=== PATIENT | male | born 1965 | race Caucasian/White ===

== ENCOUNTER 2022-08-18 08:20 | Outpatient (CLI) | payer BC, SELFPAY ==
--- NOTE | ~2022-08-18 | MR_ITS ---
EXAMINATION: MR wrist RT wo con DATE: 08/18/2022 09:12 INDICATION: Right wrist pain. TECHNIQUE: Magnetic resonance imaging (MRI) of the wrist was performed without intravenous contrast. Sequences performed include coronal T1-weighted FSE, coronal PD-weighted FS FSE, axial PD-weighted FS FSE, axial PD-weighted FSE, sagittal PD-weighted FSE, and sagittal PD-weighted FS FSE. COMPARISON: None FINDINGS: Intrinsic ligaments: There are tears of the proximal and volar components of scapholunate ligament. There is a partial tea r of the proximal component of lunotriquetral ligament. Triangular fibrocartilage complex (TFCC): There is a full-thickness tear of triangular fibrocartilage. Extensor wrist: There is a longitudinal split tear and mild tenosynovitis involving extensor carpi ulnaris. Flexor wrist: The flexor tendons are normal. Median nerve is normal. Guyon's canal: Ulnar nerve is normal. Bones/other: There is dorsal subluxation of ulna with respect to radius of the distal radioulnar joint. There is m oderate osteoarthritis of distal radioulnar joint. There is an old healed fracture deformity of dista l radius with incongruence of the distal articular surface. There is 11 degrees dorsal tilt of the di stal articular surface. There is moderate posttraumatic osteoarthritis of radioscaphoid joint. There is mild osteoarthritis of scaphoid-capitate joint and severe osteoarthritis of triscaphe joint and fi rst carpometacarpal joint. There is an old fracture of ulnar styloid with nonunion. IMPRESSION: 1. Polyarticular osteoarthritis. 2. Old fractures of distal radius and ulnar styloid. 3. Tears involving the scapholunate and lunotriquetral ligaments and triangular fibrocartilage. 4. Longitudinal split tear and mild tenosynovitis involving extensor carpi ulnaris. Reviewed, dictated and finalized at location A. [facility] CONSULTANT IMPRESSION: 1. Polyarticular osteoarthritis. 2. Old fractures of distal radius and ulnar styloid. 3. Tears involving the scapholunate and lunotriquetral ligaments and triangular fibrocartilage. 4. Longitudinal split tear and mild tenosynovitis involving extensor carpi ulna ris.
== END 2022-08-18 08:21 | disposition home or self-care (01) ==
PROVIDERS: PCP Family Medicine; Visit Provider Family Medicine
DX: M25.531 Pain in right wrist (principal); Z87.81 Personal history of (healed) traumatic fracture; M19.031 Primary osteoarthritis, right wrist; S63.591A Other specified sprain of right wrist, initial encounter; X58.XXXA Exposure to other specified factors, initial encounter
CPT/HCPCS: 73221

== ENCOUNTER 2023-12-03 01:42 | Day surgery (SDC) | payer BC, SELFPAY ==
[2023-11-26 15:30] VITALS: BMI 29.1
--- NOTE | 2023-11-26 15:33 | PC.NURSE ---
Report to the Outpatient Waiting Room, entrance under the green pavilion located off [facility], at time 0630 on date 12/03/23. Planned Procedure Time: 0830. Time changes happen often and if your time is changed the preop area will call you the afternoon before. - You and your visitor will be asked to self-screen and do not enter if you have any COVID symptoms. - A mask is optional within the hospital at this time. - No food OR DRINK from midnight until time of surgery Take the following medications with a SIP of water the morning of surgery: NONE DO NOT STOP ANY OF YOUR OTHER PRESCRIPTION MEDICATIONS PRIOR TO SURGERY ?EXCEPT THE FOLLOWING Medications to discontinue per physician: N/A Date to take last dose: N/A Please no make-up, nail georgian, hairspray, perfume, deodorant, or body powder the day of surgery. No jewelry (including any body piercings) or valuables the day of surgery, leave them at home. Please take a shower or bath the night before, or the morning of, surgery with an antibacterial soap. Wear comfortable, loose fitting clothing. - Jewelry must be removed prior to entering the operating room. Rings and piercings that are not removed may be cut off. - The hospital will not accept responsibility for valuables. - Please leave all valuables, including medications, at home the day of surgery. If you are going home after surgery, a licensed trolley coach driver must drive you home. - NO public transportation without another adult if you receive anesthesia. - We recommend that an adult stay with you for 24 hours following discharge. - We also recommend that you do not drive, make important decision, drink alcoholic beverages, or take any drugs that were not prescribed by your health care provider for at least 24 hours after your discharge time. Follow any additional instructions given to you from your surgeon. If you or anyone in your household have experienced Covid symptoms in the past week, please notify your surgeon or the nurse liaison at the phone number below for possible testing. Telephone instructions given to PT - YOBANI CHAVEZ and asked if any additional questions and then verbalized understanding. Patient advised to call surgeon office or pre surgery nurse liaison [phone] if any additional questions.
[2023-12-03 06:26] VITALS: BP 140/88; PULSE 61; RESP 18; TEMP 36.7; O2SAT 100; BMI 29.7
[2023-12-03] MEDS: LACTATED RINGERS 1,000 ML 30 ML IV CONT (07:10)
--- NOTE | 2023-12-03 08:01 | P.PNAN_ITS ---
Anes - Initial Pre Proc Eval Procedure: Operation Date: 12/03/23 08:30 Proposed Procedures p Right Endoscopic Carpal Tunnel Release, Possible Open - Praveen Quesada MD Date/Time: 12/03/23 08:01 Surgeon: Praveen Quesada MD Pre Op Diagnosis: right carpal tunnel syndrome Patient Data Age: 58 Gender: M Height: 1.83 m Weight: 99.4 kg Last Vital Signs Temp 98.0 F 12/03/23 06:26 Pulse 61 12/03/23 06:26 Resp 18 12/03/23 06:26 BP 140/88 12/03/23 06:26 Pulse Ox 100 12/03/23 06:26 O2 Del Method Room Air 12/03/23 06:26 Allergies Allergy/AdvReac Type Severity Reaction Status Date / Time No Known Allergies Allergy Verified 12/03/23 07:17 Home Medications Medication Instructions Recorded Confirmed Type lisinopril 20 mg tablet 20 mg PO DAILY #90 tabs 08/07/23 11/26/23 Rx tadalafil 20 mg tablet (Cialis) 20 mg PO DAILY PRN sexual activity 10/21/23 11/26/23 Rx #14 tabs Patient hx anesthesia problems: none Family hx anesthesia problems: none Results Review: All pre-operative results and documents have been reviewed as part of the pre- operative evaluation. [facility] Family History Family History Father Hypertension Heart problem Social History Social History Smoking status: Never smoker Alcohol intake: current Drinks per week: 10 Substance use: never Substance use type: does not use Lack of Transportation: No Lack of Food: Never True Current Housing: I Have Housing Concerned About Future Housing: No Difficulty Paying Gas/Electric Bills: No Difficulty Paying for Meds: No Currently Unemployed: No Education: High School Diploma/GED Difficulty w/ Childcare or Family Care: No Living arrangements: with family Gender identity (if verbalized by the patient): Male Sexual Orientation (if Verbalized by the Patient): Straight or Heterosexual Spiritual care concerns: No Anes - Eval Final PreProcedure Day of Procedure 12/03/23 08:01 Patient weight: obese Heart: regular rate and rhythm Lungs: clear to auscultation Airway: Mallampati scale class II Neurological: alert and oriented Last oral intake: >/= 8 hours ASA classification: II Emergent: no Anesthetic plan: proceed Anesthesia type and monitoring: general GIVS and standard monitoring Results Review: All pre-operative results and documents have been reviewed as part of the pre- operative evaluation. Informed Consent: The patient's anesthetic plan and its attendant risks and benefits were discussed with the patient/family/POA. Questions were solicited and answers provided to the satisfaction of the patient/family/POA.
--- NOTE | 2023-12-03 08:22 | WPDHPUPDATE1 ---
History and Physical Update Update Date/Time: 12/03/23 08:22 Patient seen and examined in pre-operative holding area. No interval change in medical history or symptoms. Patient recalls previous discussion of benefits and alternatives to procedure. Continues to desire to proceed with right endoscopic possible open carpal tunnel release. Reviewed procedure, post-op expectations and risks including but not limited to bleeding, infection, injury to tendon/nerve/vessel, decreased hand function, stiffness, RSD, no change or worsening of symptoms. I discussed the possible use of assistants and their participation in the case. Patient stated understanding and signed the consent form wishing to proceed.
--- NOTE | 2023-12-03 08:26 | P.OP_ITS ---
Procedure Note - Detailed Date of Procedure 12/03/23 Pre-op Diagnosis right carpal tunnel syndrome Post-op Diagnosis Same Procedure Performed right ectr Surgeon Praveen Quesada MD [employer]proof[employer]er Sarah Umana PA-C Anesthesia MAC Description of Procedure INFORMED CONSENT: The patient was seen and examined and marked in the pre-op area.? The patient signed the consent form. PROCEDURE IN DETAIL:The patient taken back to OR on the stretcher in supine position. Time out performed with anesthesia, surgeon and staff agreeing on patient's name site and surgery to be performed SCDs were placed on the lower extremities and inflated. A tourniquet was placed on {right} upper extremity and antibiotics given IV After anesthesia administered sedation I injected {5}cc 1%lido with epi and 0.5% marcaine plain at the operative site The?{right upper extremity}?was prepped and draped in sterile fashion the??{right upper extremity} was? exsanguinated with Esmarch bandage and tourniquet inflated to 250mmHg I made a transverse incision in the {right} volar distal wrist crease through skin and dermis with 15 blade scalpel.? Littler scissors spread down to antebrachial fascia. A small incision was made in antebrachial fascia allowing access to Carpal tunnel. I proceeded with sequential dilation staying in line with the ring finger and hugging the hook of the hamate.? I then used the synovial elevator to free any adhesions from the underside of the transverse carpal ligament. Next I was able to insert the Microaire endoscopic carpal tunnel device with direct visualization of the transverse fibers on the monitor and proceeded with complete segmental retrograde release of the ligament in its entirety.? I irrigated with normal saline and closed with 4-0 monocryl for dermis and subcuticular closure. A dressing of Dermabond, 4x4, marta, and a volar splint was applied for patient safety, security, and comfort and secured with an jerry bandage after the tourniquet was let down noting the hand was warm and well perfused. The patient was then awaken from anesthesia and transferred to the recovery room in stable condition.? Complications - none EBL- 0cc Disposition - home in stable conditions Sarah Umana PA-C was essential for positioining, retraction, closure and dressing placement [facility] Billing Surgery - Charge Forward: Surgery Billing ([id number] for sarah)
[2023-12-03 09:00] VITALS: BP 116/75; PULSE 65; RESP 14; O2SAT 98
[2023-12-03 09:20] VITALS: BP 124/79; PULSE 55; RESP 14; O2SAT 98
[2023-12-03 09:40] VITALS: BP 126/79; PULSE 53; RESP 14
== END 2023-12-03 09:50 | disposition home or self-care (01) ==
PROVIDERS: PCP Family Medicine; Visit Provider Plastic Surgery
PROC: 01N54ZZ Release Median Nerve, Percutaneous Endoscopic Approach (ICD-10-PCS; CPT 29848; principal; 2023-12-03 08:30)
DX: G56.01 Carpal tunnel syndrome, right upper limb (principal)
CPT/HCPCS: 29848; J0690; J1100; J2250; J2405; J2704; J3010; J7120

== ENCOUNTER 2024-04-13 16:02 | Emergency (ER) | payer BC, SELFPAY ==
[2024-04-13 16:12] VITALS: BP 128/84; PULSE 102; RESP 14; TEMP 38.1; O2SAT 97
--- NOTE | 2024-04-13 16:17 | ED.EXTPRO ---
HPI - Extremity Problem General Chief complaint: Extremity Injury, Lower Stated complaint: Swollen Left Knee Time Seen by Provider: 04/13/24 16:15 Source: patient Mode of arrival: ambulatory Limitations: no limitations History of Present Illness HPI Narrative: Joey is a 59-year-old male patient presenting to the clinic today with complaints of fever, chills, body aches, and left lower leg swelling. He reports about a week ago he developed swelling to the left knee and this is gradually gotten worse. Has redness and swelling from the left mid thigh all the way down to his foot. Patient states redness and swelling started around his left knee joint. Denies any injury. Related Data Allergies Allergy/AdvReac Type Severity Reaction Status Date / Time No Known Allergies Allergy Verified 04/13/24 16:12 Review of Systems Review of Systems: Pertinent positives per HPI. Patient denies any rash, headache, visual changes, dizziness, cough, runny nose, sore throat, shortness of breath, chest pain, palpitations, nausea, vomiting, diarrhea, constipation, abdominal pain, or any urinary issues. PMFSH Family History Family History Father Hypertension Heart problem Social History Social History Smoking status: Never smoker Alcohol intake: current Drinks per week: 10 Substance use: never Substance use type: does not use Lack of Transportation: No Lack of Food: Never True Current Housing: I Have Housing Concerned About Future Housing: No Difficulty Paying Gas/Electric Bills: No Difficulty Paying for Meds: No Currently Unemployed: No Education: High School Diploma/GED Difficulty w/ Childcare or Family Care: No Living arrangements: with family Gender identity (if verbalized by the patient): Male Sexual Orientation (if Verbalized by the Patient): Straight or Heterosexual Spiritual care concerns: No Comments At the time of my signature, I reviewed and agree with the nursing past medical, surgical, social, and family history. There is no relevant family history pertinent to the patient complaint. Exam Narrative: General: Well-developed, well nourished, acute ill appearing Head: Normocephalic, atraumatic. Cardio: Regular rate and rhythm, s1 and s2 normal, no murmur appreciated. Resp: Clear to auscultation bilaterally, no rhonchi, rales, wheezing or rubs. Musculoskeletal: No deformity, redness, erythema, and swelling noted from the left mid thigh down to the foot, 2+ pitting edema to the tib/fib, tender to palpation of the left lower extremity, grossly normal range of motion, muscle strength strong and equal, peripheral pulse strong, no cyanosis, normal gait and station Course Course Emergency Course: Portions of this record may have been created with voice recognition software. Level of Care: Express Care Visit Vital Signs Vital signs: Vital Signs Temperature 38.1 C H 04/13/24 16:12 Pulse Rate 102 H 04/13/24 16:12 Respiratory Rate 14 04/13/24 16:12 Blood Pressure 128/84 04/13/24 16:12 Pulse Oximetry 97 04/13/24 16:12 Oxygen Delivery Room Air 04/13/24 16:12 Temperature 38.1 C H 04/13/24 16:12 Pulse Rate 102 H 04/13/24 16:12 Respiratory Rate 14 04/13/24 16:12 Blood Pressure 128/84 04/13/24 16:12 Pulse Oximetry 97 04/13/24 16:12 Oxygen Delivery Room Air 04/13/24 16:12 Vital signs reviewed MDM - Extremity (Nontraumatic) MDM Narrative Medical decision making narrative: At the time of visit patient is resting in the exam chair,. Patient appears to be acutely ill. Plan: Recommend transfer to the ER for further evaluation/treatment-rule out sepsis/septic joint. Patient agrees to be transfer to [facility]. Contacted Dr. Schwartz at [facility] and she accepts patient for transfer. Patient to be transferred via private car.
== END 2024-04-13 16:22 | disposition short-term general hospital (02) ==
PROVIDERS: Emergency Provider Nurse Practitioner Family; PCP Family Medicine
DX: L03.116 Cellulitis of left lower limb (principal)
CPT/HCPCS: 99212; G0463

== ENCOUNTER 2024-04-13 16:42 | Inpatient (IN) | payer BC, SELFPAY ==
--- NOTE | ~2024-04-13 | XR_ITS ---
EXAMINATION: XR knee LT 3V DATE: 04/14/2024 10:06 INDICATION: Left knee prepatellar bursitis TECHNIQUE: AP, lateral and sunrise views of the left knee were obtained COMPARISON: None. FINDINGS: Alignment is normal. No fracture. Mild to moderate joint space narrowing the medial compartment of t he left knee. Moderate joint space narrowing at the lateral side of the patellofemoral compartment wi th moderate size marginal osteophytes. Small marginal osteophytes at the medial and lateral compartme nts. No knee joint effusion. Enthesophytes along the anterior and proximal patella. No cortical erosi ons. Soft tissue swelling anterior to the patellar tendon and more prominently anterior to the anterior ti bial tuberosity with increased density to the subcutaneous fat which would be consistent with prepate llar and pretibial bursitis as seen on prior CT. There is more diffuse reticular pattern of surroundi ng subcutaneous edema about the knee and proximal calf. IMPRESSION: 1. Prepatellar and pretibial bursitis. No left knee joint effusion or acute osseous abnormality. 2. Tricompartmental osteoarthritis, moderate at the patellofemoral compartment, mild to moderate at t he medial compartment and mild at the lateral compartment. Reviewed, dictated and finalized at location A. IMPRESSION: 1. Prepatellar and pretibial bursitis. No left knee joint effusion or acute oss eous abnormality. 2. Tricompartmental osteoarthritis, moderate at the patellofemoral compartment, mild to moderate at the medial compartment and mild at the lateral compartment .
--- NOTE | ~2024-04-13 | CT_ITS ---
CT OF left tibia/fibula EXAMINATION: CT tibia/fibula LT w con DATE: 04/13/2024 18:56 INDICATION: Rule out deep space infection TECHNIQUE: Computed tomography (CT) of the left tibia/fibula was performed with 100 mL Omnipaque 350 intravenous contrast. Automated exposure control and iterative reconstruction technique were employed . The dose-length product was 981.04 mGy-cm. COMPARISON: None FINDINGS: Lobulated rim-enhancing fluid collection in the anterior knee soft tissues, superficial to the tibial tuberosity, measuring 4.4 cm AP x 9.0 cm transverse x 7.8 cm CC. Mild overlying dermal thi ckening. Fairly extensive diffuse subcutaneous edema noted throughout the left lower leg. No knee marii nt space involvement. Small Muro's cyst. Tricompartmental knee joint osteoporosis arthritis, severe in the medial compartment. No fracture or dislocation. No lytic or blastic lesion. No erosion or fox osteal change. IMPRESSION: 9.0 cm subcutaneous abscess in the anterior knee. Diffuse lower extremity edema/cellulitis. Reviewed, dictated and finalized at location K. IMPRESSION: 9.0 cm subcutaneous abscess in the anterior knee. Diffuse lower extremity edema /cellulitis.
[2024-04-13 16:46] VITALS: BP 135/73; PULSE 104; RESP 20; TEMP 37.1; O2SAT 100
--- NOTE | 2024-04-13 17:13 | ED.GENADULT ---
HPI - General Adult General Chief complaint: Skin/Abscess/Foreign Body <KAITLYN Pryor Last Filed: 04/13/24 17:22> Stated complaint: L leg cellulitis <KAITLYN Pryor Last Filed: 04/13/24 17:22> Time Seen by Provider: 04/13/24 17:13 <Ankit Puentes PA-C - Last Filed: 04/13/24 17:22> Focused HPI: This is a 59-year-old male with PMH of hypertension who presents to the ED for chief complaint of left lott redness, swelling and tenderness onset x1 week. Reports it has been gradually worsening over the past week. Today it was bad enough for him to go to urgent care. Urgent care referred him over here rule out a septic joint. Patient states that he is able to ambulate without difficulty. He reports that there is a lot of swelling to the left lower leg. Denies numbness, weakness, calf pain or tenderness. Denies history of blood clot. Denies any immunocompromised condition GENERAL: Well-appearing, well-nourished, and in no acute distress. HEAD: Normocephalic, atraumatic. CHEST: Clear to auscultation. No respiratory distress. HEART: Regular rate and rhythm. MSK: Ambulatory without assistance Right knee: Benign Left knee: There is erythema and swelling throughout the left anterior lott and left inferior knee. There is redness streaking the proximal. Parenting anterior lott is quite warm and tender. Questionable fluctuance central to the erythema. No drainage. Full active range of motion of the left knee. Able to bear weight NEURO: Alert and oriented x3. Patient screened in triage and initial orders placed. Additional care and disposition to be based upon diagnostic testing and treatment. <KAITLYN Pryor Last Filed: 04/13/24 17:22> Source: patient <KAITLYN Pryor Last Filed: 04/13/24 17:22> Mode of arrival: ambulatory <KAITLYN Pryor Last Filed: 04/13/24 17:22> Limitations: no limitations <KAITLYN Pryor Last Filed: 04/13/24 17:22> Related Data Allergies/adverse reactions: Allergies Allergy/AdvReac Type Severity Reaction Status Date / Time No Known Allergies Allergy Verified 04/13/24 17:27 <Ankit Puentes PA-C - Last Filed: 04/13/24 17:22> [facility] Family History Family History: Family History Father Hypertension Heart problem <Ankit Puentes PA-C - Last Filed: 04/13/24 17:22> Social History Social History: Social History Smoking status: Never smoker Alcohol intake: current Drinks per week: 10 Substance use: never Substance use type: does not use Lack of Transportation: No Lack of Food: Never True Current Housing: I Have Housing Concerned About Future Housing: No Difficulty Paying Gas/Electric Bills: No Difficulty Paying for Meds: No Currently Unemployed: No Education: High School Diploma/GED Difficulty w/ Childcare or Family Care: No Living arrangements: with family Gender identity (if verbalized by the patient): Male Sexual Orientation (if Verbalized by the Patient): Straight or Heterosexual Spiritual care concerns: No <Ankit Puentes PA-C - Last Filed: 04/13/24 17:22> Exam Narrative: APPEARANCE: No apparent distress. Head: atraumatic. EYES: EOMI, NOSE: Atraumatic NECK: Trachea midline RESPIRATORY: No increased rate of breathing CARDIOVASCULAR: RRR, ABDOMINAL: Non-distended MUSCULOSKELETAl: Large fluctuant mass over the infrapatellar ligament, leg is neurovascularly intact. No pain with motion of the knee. NEURO: Alert. Moving 4/4 extremities SKIN:: Warm, dry. Normal color PSYCHIATRIC: Normal affect <Rahul Vicente MD - Last Filed: 04/13/24 20:36> Course Vital Signs Vital signs: Vital Signs Temperature 98.8 F 04/13/24 16:46 Pulse Rate 104 H 04/13/24 16:46 Respiratory Rate 20 04/13/24 16:46 Blood Pressure 135/73 0
[2024-04-13 17:35] VITALS: BP 140/78; PULSE 99; RESP 28; O2SAT 97
[2024-04-13] MEDS: SODIUM CHLORIDE 0.9% IV 1,000 ML 999 ML IV CONT (17:44)
[2024-04-13 17:46] LABS: Basophils Absolute Auto 0.1 K/mm3 (0.0-0.1); Basophils Percent Auto 0.5 % (0.2-1.2); Eosinophils Absolute Auto 0.1 K/mm3 (0-0.3); Eosinophils Percent Auto 0.5 % (0-4.4); Hematocrit 37.7 % (42.0-52.0); Hemoglobin 12.8 g/dL (14.0-18.0); Immature Granulocyte Absolute 0.02 K/mm3 (0.00-0.031); Immature Granulocyte Percent A 0.2 % (0-0.5); Lymphocytes Percent Auto 10.8 % (18.3-44.2); Mean Corpuscular Hemoglobin 29.6 pg (26-34); Mean Corpuscular Volume 87.3 fl (80-100); Mean Platelet Volume 9.6 fl (7.4-10.4); Monocytes Absolute Auto 0.7 K/mm3 (0.1-0.6); Neutrophils Absolute Auto 7.4 K/mm3 (1.3-6.7); Platelet Count Result 332 k/mm3 (150-375); Red Blood Count 4.32 M/mm3 (4.6-6.20); Red Cell Distribution Width 12.8 % (11.5-14.5); White Blood Count 9.2 K/mm3 (4.5-10.0)
[2024-04-13 17:59] LABS: Lactic Acid Reflex 0.8 mmol/L (0.7-2.0)
[2024-04-13 18:02] LABS: Alanine Aminotransferase 52 U/L (6-50); Albumin Level 4.5 g/dL (3.5-5.1); Alkaline Phosphatase 105 U/L (38-126); Anion Gap 12 mmol/L (4-12); Aspartate Amino Transferase 44 U/L (17-59); Bilirubin,Total 0.7 mg/dL (0.2-1.3); Blood Urea Nitrogen 13 mg/dL (9-20); Carbon Dioxide 26 mmol/L (22-30); Chloride 92 mmol/L (98-107); Estimated CRCL calculation 71 ml/min; Estimated Glomerular Filt Rate > 60; Glucose 115 mg/dL (65-110); Potassium 4.1 mmol/L (3.4-5.0); Sodium 130 mmol/L (137-145)
[2024-04-13 18:14] LABS: CRP 17.2 mg/dL (<1.0)
[2024-04-13] MEDS: PIPERACILLN/TAZ 3.375GM/NS50ML 3.375 GM/50 ML BAG IVPB (20:40)
[2024-04-13 20:50] VITALS: BP 148/85; PULSE 94; RESP 16; O2SAT 99
[2024-04-13] MEDS: ONDANSETRON INJ 4 MG/2 ML VIAL IV PUSH (20:50)
[2024-04-13 22:00] VITALS: BP 131/71; PULSE 91; RESP 18; TEMP 37; O2SAT 97
[2024-04-13 22:06] VITALS: BMI 30.2
--- NOTE | 2024-04-13 22:13 | ADMGEN ---
This patient, Joey Edwards Jr., was admitted to [facility] Surg Room 328-01. Patient/family oriented to hospital policies and general routines including ID bracelet, bed and alarms, visiting hours, pain management, procedures, bathroom and other care routines, personal items, smoking policy, room service/diet, and visiting hours. Information on how to activate the Rapid Response Team has been discussed. Patient/Family are encouraged to report perceived risks to care and to ask questions if they do not understand what they are told or what they should do.
[2024-04-13] MEDS: LACTATED RINGERS 1,000 ML 150 ML IV CONT (22:24)
[2024-04-13] MEDS: VANCOMYCIN 1,250 MG/NS 250 ML 1,250 MG/250 ML BAG 166.67 MG IVPB (22:24)
--- NOTE | 2024-04-13 23:17 | PM.IMHP ---
H&P: HPI History of Present Illness Date/Time: 04/13/24 23:18 Chief Complaint: Left knee swelling and redness Narrative: 59-year-old male with a past medical history of essential hypertension daughters function who presented to the ER after referral from urgent care due to left knee swelling and erythema that is getting worse over the last 2 weeks. 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 He noticed that about 2 weeks ago he developed an area of erythema that was initially about the size of a quarter on his anterior knee. Initially there was no associated tenderness but he did develop tenderness this past week and has had progressive swelling. The swelling was initially localized around the anterior knee but now his calf and foot have become swollen as well. On and off throughout the last week he has had intermittent rigors and subjective fevers. He did not check his temperature. His temperature on arrival to the ER was 100.5?. He reported that he thought that it would eventually get better and he did not want to miss work so he just waited. Today he felt bad enough that he went to urgent care and they referred him to come here to rule out a septic joint. The patient reports that he can ambulate without difficulty but does have a little bit of discomfort. The discomfort is worse when he bends his knee or puts direct pressure on the area. Pain is 5/10 in intensity and aching. He has tried some ibuprofen at home without relief in symptoms. A CT scan with contrast were performed in the ED which demonstrated a 4.4 x 9 x 7.8 cm abscess without joint involvement but with overlying dermal thickening and edema consistent with cellulitis. In on exam patient is noted to have edema down the anterior leg and into the foot. He reports that part of why he came in today was because he had difficulty getting his boot on to go to work. He denies a prior history of prior skin infections. He denies any other symptoms. He reports that he had told himself the last time he had an illness that he would go to the doctor sooner. He is now impair states that he did not come in and get this taking care of. Review of Systems Review of Systems: 10 systems were reviewed with pertinent positives and negatives per HPI. Except as documented in the HPI, all other systems were reviewed and are negative. 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 He does not have any children. 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 He drinks about 10-15 beers each weekend. He denies any tobacco or illicit substance use. Code status: Full code Surrogate decision maker: Cathy () Smoking status: Never smoker Second hand tobacco smoke exposure: No Alcohol intake: current Drinks per week: 15 Substance use: never Substance use type: does not use Do You Feel Safe in your Home?: Yes Lack of Transportation: No Lack of Food: Never True Current Housing: I Have Housing Concerned About Future Housing: No Difficulty Paying Gas/Electric Bills: No Difficulty Paying for Meds: No Currently Unemployed: No Education: High School Diploma/GED Difficulty w/ Childcare or Family Care: No Living arrangements: with family Gender identity (if v
[2024-04-14] VITALS (13 sets, daily range): BP systolic 113–133; BP diastolic 63–78; PULSE 64–96; RESP 12–19; TEMP 36.4–39.6; O2SAT 97–100
[2024-04-14] MEDS: VANCOMYCIN 1,250 MG/NS 250 ML 1,250 MG/250 ML BAG 166.67 MG IVPB (01:55)
[2024-04-14] MEDS: PIPERACILLN/TAZ 3.375GM/NS50ML 3.375 GM/50 ML BAG IVPB ×2 (03:36→09:36)
[2024-04-14] MEDS: IBUPROFEN 600 MG TABLET PO (05:33)
[2024-04-14] MEDS: ACETAMINOPHEN 325 MG TABLET 650 MG PO ×2 (05:33→21:02)
[2024-04-14 06:34] LABS: Basophils Percent Auto 0.5 % (0.2-1.2); Eosinophils Absolute Auto 0.1 K/mm3 (0-0.3); Eosinophils Percent Auto 0.6 % (0-4.4); Hematocrit 31.8 % (42.0-52.0); Hemoglobin 10.5 g/dL (14.0-18.0); Immature Granulocyte Absolute 0.07 K/mm3 (0.00-0.031); Immature Granulocyte Percent A 0.8 % (0-0.5); Lymphocytes Absolute Auto 0.88 K/mm3 (0.9-3.2); Lymphocytes Percent Auto 10.2 % (18.3-44.2); Mean Corpuscular Hemoglobin 29.2 pg (26-34); Mean Corpuscular Volume 88.3 fl (80-100); Mean Platelet Volume 9.3 fl (7.4-10.4); Monocytes Absolute Auto 0.7 K/mm3 (0.1-0.6); Monocytes Percent Auto 7.9 % (2.6-8.5); Neutrophils Absolute Auto 6.9 K/mm3 (1.3-6.7); Platelet Count Result 276 k/mm3 (150-375); Red Cell Distribution Width 13.1 % (11.5-14.5); White Blood Count 8.6 K/mm3 (4.5-10.0)
[2024-04-14 06:41] LABS: Anion Gap 9 mmol/L (4-12); Blood Urea Nitrogen 11 mg/dL (9-20); Calcium 8.3 mg/dL (8.4-10.2); Carbon Dioxide 24 mmol/L (22-30); Chloride 101 mmol/L (98-107); Estimated CRCL calculation 87 ml/min; Estimated Glomerular Filt Rate > 60; Glucose 117 mg/dL (65-110); Potassium 3.9 mmol/L (3.4-5.0); Sodium 134 mmol/L (137-145)
--- NOTE | 2024-04-14 08:59 | PM.IMPN ---
Progress Note: A&P Assessment and Plan (1) Cutaneous abscess of left knee: Code(s): L02.416 - Cutaneous abscess of left lower limb Status: Acute (2) Hypertension: Qualifiers: Hypertension type: primary hypertension Qualified Code(s): I10 - Essential (primary) hypertension Code(s): I10 - Essential (primary) hypertension Status: Acute (3) Sepsis without septic shock: Code(s): A41.9 - Sepsis, unspecified organism Status: Acute Plan Sepsis fever 103, tachycardia and infection of the LT knee 1L NS in ED Zosyn and vanc Monitor lactic acid levels q6hr. 0.8 POA Repeat CBC, CMP. Two sets of blood cultures pending C-reactive proteins elevated Abscess of left knee Septic Joint?? Ct 9.0 cm subcutaneous abscess in the anterior knee. Diffuse lower extremity edema/cellulitis. Ortho consulted for possible aspiration Vanc/zosyn Pain control blood cultures pending Lactic WNL culture fluid Antipyretics for fever HX HTN: Resumed lisinopril Code status: Full code per patient DVT prophylaxis: Lovenox Stress ulcer prophylaxis: Protonix 40 daily PT/OT notes: Ambulatory Disposition: Patient admitted to the medical unit for further evaluation of abscess/septic joint of the left knee, ortho consulted will continue with empiric antibiotics plan for aspiration later today. Patient plan is to return home when medically stable. Time Spent With Patient Time with patient: 15 - 25 minutes Subjective Date/time seen: 04/14/24 08:59 Interval history: Admission: 59-year-old male with a past medical history of essential hypertension daughters function who presented to the ER after referral from urgent care due to left knee swelling and erythema that is getting worse over the last 2 weeks. The patient reports that he works for the [employer] and does end of kneeling on his knees frequently. He noticed that about 2 weeks ago he developed an area of erythema that was initially about the size of a quarter on his anterior knee. Initially there was no associated tenderness but he did develop tenderness this past week and has had progressive swelling. The swelling was initially localized around the anterior knee but now his calf and foot have become swollen as well. On and off throughout the last week he has had intermittent rigors and subjective fevers. He did not check his temperature. His temperature on arrival to the ER was 100.5?. He reported that he thought that it would eventually get better and he did not want to miss work so he just waited. Today he felt bad enough that he went to urgent care and they referred him to come here to rule out a septic joint. The patient reports that he can ambulate without difficulty but does have a little bit of discomfort. The discomfort is worse when he bends his knee or puts direct pressure on the area. Pain is 5/10 in intensity and aching. He has tried some ibuprofen at home without relief in symptoms. A CT scan with contrast were performed in the ED which demonstrated a 4.4 x 9 x 7.8 cm abscess without joint involvement but with overlying dermal thickening and edema consistent with cellulitis. In on exam patient is noted to have edema down the anterior leg and into the foot. He reports that part of why he came in today was because he had difficulty getting his boot on to go to work. He denies a prior history of prior skin infections. He denies any other symptoms. 04/14/2024: Assumed Care Patient LT with significant swelling, erythema and pain 9/10 unable to bear weight, plan is for aspiration today send for culture. Patient was febrile overnight and tachycardic but has improved with ABX therapy. Patient denied any trauma or known injury to knee. Review of Systems Review of Systems: 10 systems were reviewed with pertinent positives and negatives per HPI. Except as documented in the HPI, all other systems wer
--- NOTE | 2024-04-14 09:31 | PM.CNOR ---
Assessment and Plan Assessment and plan (1) Prepatellar bursitis, left knee: Code(s): M70.42 - Prepatellar bursitis, left knee <PARAG Green - Last Filed: 04/14/24 11:52> Status: Acute <PARAG Green - Last Filed: 04/14/24 11:52> Assessment and Plan: History, exam and CT scan reviewed with the patient. Plain films ordered. Plain films reveal prepatellar and pretibial bursitis without left knee joint effusion or acute osseous abnormality. Patient does have tricompartmental osteoarthritis noted as well on radiographs. On exam, large area of erythema anterior to the tibial tubercle which is fluctuant in nature with mild purulence from a small abrasion. No palpable knee joint effusion. Patient is able to bear weight without extreme pain. Erythema and swelling throughout the entire left lower extremity consistent with cellulitis. 2+ pitting edema in the left foot. Palpable pedal pulses. Sensation intact. Discussed condition, nature, etiology and course of natural history. Conservative and operative treatment options reviewed as well as the risks and benefits of each. Blood cultures obtained up to this point but no wound cultures available. Recommended I&D of the prepatella and pretibial bursa by Dr. Cole. Risks of surgery including but not limited to neurovascular damage, wound complications, blood clot, pulmonary embolus, stroke, myocardial infarction, anesthetic risks up to and including were reviewed. Continued pain and possible dysfunction were explained. No guarantees were offered. The patient understands and wishes to proceed. Plan: I&D of the prepatella and pretibial bursa by Dr. Cole. NPO. Cultures to be obtained intraoperatively. Continue IV antibiotics in the interim. Possible need for PICC line placement and ID consult pending surgical intervention. Monitor labs and vitals. Repeat CRP and CBC following surgical intervention. We will obtain care coordination consult for postoperative planning purposes. <PARAG Green - Last Filed: 04/14/24 11:52> Assessment and Plan: Reviewed history, exam, radiographs and current labs with attending MD and covering surgeon, Dr. Cole, who agrees with current plan as indicated above. No further recommendations from Dr. Cole at this time. <PARAG Green - Last Filed: 04/14/24 11:52> History of Present Illness HPI Consult date: 04/14/24 <PARAG Green - Last Filed: 04/14/24 11:52> 04/14/24 <Reji Cole MD - Last Filed: 04/14/24 12:42> Chief complaint: Abscess <PARAG Green - Last Filed: 04/14/24 11:52> Narrative: 59-year-old male admitted with complaints of left knee pain and swelling. Per patient report, the onset of the pain and swelling was 1 week ago with gradual increasing erythema. He presented to the emergency room with complaints of left knee pain and underwent a CT scan which revealed a 9.0 cm subcutaneous abscess in the anterior knee. Diffuse lower extremity edema and cellulitis is noted as well. Patient was admitted for broad-spectrum antibiotics and orthopedic consult. 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
[2024-04-14] MEDS: lisinopriL 20 MG TABLET PO (09:34)
[2024-04-14] MEDS: PANTOPRAZOLE 40 MG TABLET PO (09:34)
--- NOTE | 2024-04-14 10:24 | ECG_ITS ---
Test Date: 2024-04-14 11:03:00 Measurements Intervals Maria Stein Rate: 61 P: 4 OH: 147 QRS: 7 QRSD: 102 T: 19 QT: 408 QTc: 414 Interpretive Statements SINUS RHYTHM EARLY PRECORDIAL R/S TRANSITION BORDERLINE ECG No previous ECG available for comparison Electronically Signed On 04-14-2024 11:06:41 CDT by Олег Locke D.O.
[2024-04-14] MEDS: VANCOMYCIN 1,500 MG/NS 500 ML 1,500 MG/500 ML BAG 250 MG IVPB ×2 (10:35→21:03)
--- NOTE | 2024-04-14 11:23 | PC.NURSE ---
To OR per [BRODIE], IV [ ]. Report given to [BRODIE ].
[2024-04-14] MEDS: LACTATED RINGERS 1,000 ML 30 ML IV CONT (11:40)
--- NOTE | 2024-04-14 12:41 | WPDHPUPDATE1 ---
History and Physical Update Update Date/Time: 04/14/24 12:41 History and Physical has been reviewed, including an updated exam of the patient. There are NO changes in the patient's condition. Risks, benefits, and alternatives have been discussed and questions answered. Patient agrees to proceed with procedure.
--- NOTE | 2024-04-14 12:45 | PHA.ABX.ID ---
Pharmacy ID Consult - Stewardship Interventions Type of Interventions: De-escalation Pharmacy ID Note: Subjective Pharmacy was consulted by Steve Garay regarding infectious diseases for Joey Edwards Jr.. Joey Edwards Jr. is a 59 year old M with concerns regarding potential septic bursitis. Background The patient is currently receiving Vancomycin and Piperacillin/Tazobactam (Full Day 1). The patient's PMH includes prepatellar bursitis per scans and provider note - other PMH per provider note. Additionally, the patient was febrile soon after presentation since this AM but is afebrile now. Assessment/Recommendation/Discussion Spoke briefly with consulting provider, as the patient is currently not immunosuppressed per discussion the patient's beta-lactam was transitioned from Zosyn to ceftriaxone 2g q24h - current therapy (Vancomycin/Ceftriaxone). Given this is likely septic bursitis per provider coverage for Streptococcus and Staphylococcus aureus (MRSA especially) is warranted given patient's fever. Patient is to undergo source control and culture later today per provider. After source control and confirmation of pathogen, patient can likely be transitioned to oral therapy in the absence of fever / sepsis or local infective joint with prosthetic material and if the patient is showing improvement. Empiric Oral options include a combination of doxycycline or Sulfamethoxazole/Trimethoprim and amoxicillin (combination of a beta-lactam and an anti-MRSA agent) or a combination of IV ceftriaxone and PO sulfamethoxazole/trimethoprim or doxycycline. Duration of treatment, assuming improvement, can likely be between 14-21 days from the drainage/final source control. Will continue to follow for culture results and more targeted therapy options. Laboratory Tests 04/13/24 04/13/24 04/14/24 17:40 17:40 06:16 WBC 9.2 8.6 Creatinine 1.10 Estim Creat Clear Calc 71 87 Lactic Acid 0.8 C-Reactive Protein 17.2 H 04/14/24 06:16 WBC Creatinine 1.00 Estim Creat Clear Calc Lactic Acid C-Reactive Protein Thank you for the interesting consult. Demarcus Griffiths, PharmD Infectious Disease/Antimicrobial Stewardship Pharmacist 04/14/24; 1245 WBC 8.6 K/mm3 (4.5-10.0) 04/14/24 06:16 Creatinine 1.00 mg/dL (0.7-1.3) 04/14/24 06:16 Estim Creat Clear Calc 87 ml/min 04/14/24 06:16
--- NOTE | 2024-04-14 12:51 | WPDANESEPPF ---
Anes - Initial Pre Proc Eval Procedure: Operation Date: 04/14/24 13:00 Proposed Procedures p Irrigation & Debridement Left Pre-Patella Bursa(Left) - Reji Cole MD Date/Time: 04/14/24 12:51 Surgeon: Enid Ballard APRN Pre Op Diagnosis: Abscess Patient Data Age: 59 Gender: M Height: 1.83 m Weight: 101 kg Last Vital Signs Temp 36.6 C 04/14/24 11:39 Pulse 64 04/14/24 11:39 Resp 18 04/14/24 11:39 BP 113/63 04/14/24 11:39 Pulse Ox 100 04/14/24 11:39 O2 Del Method Room Air 04/14/24 11:39 Allergies Allergy/AdvReac Type Severity Reaction Status Date / Time No Known Allergies Allergy Verified 04/14/24 11:47 Home Medications Medication Instructions Recorded Confirmed Type lisinopril 20 mg tablet 20 mg PO DAILY #90 tabs 03/20/24 04/14/24 Rx Laboratory Tests 04/13/24 04/14/24 17:40 06:16 WBC 9.2 K/mm3 8.6 K/mm3 (4.5-10.0) (4.5-10.0) RBC 4.32 L M/mm3 3.60 L M/mm3 (4.6-6.20) (4.6-6.20) Hgb 12.8 L g/dL 10.5 L g/dL (14.0-18.0) (14.0-18.0) Hct 37.7 L % 31.8 L % (42.0-52.0) (42.0-52.0) MCV 87.3 fl 88.3 fl (80-100) (80-100) MCH 29.6 pg 29.2 pg (26-34) (26-34) MCHC 34.0 g/dl 33.0 g/dl (32-36) (32-36) RDW 12.8 % 13.1 % (11.5-14.5) (11.5-14.5) Plt Count 332 k/mm3 276 k/mm3 (150-375) (150-375) MPV 9.6 fl 9.3 fl (7.4-10.4) (7.4-10.4) Immature Gran % (Auto) 0.2 % 0.8 H % (0-0.5) (0-0.5) Neut % (Auto) 80.0 H % 80.0 H % (45.5-73.1) (45.5-73.1) Lymph % (Auto) 10.8 L % 10.2 L % (18.3-44.2) (18.3-44.2) [place] % (Auto) 8.0 % 7.9 % (2.6-8.5) (2.6-8.5) Eos % (Auto) 0.5 % 0.6 % (0-4.4) (0-4.4) Baso % (Auto) 0.5 % 0.5 % (0.2-1.2) (0.2-1.2) Lymph # (Auto) 1.00 K/mm3 0.88 L K/mm3 (0.9-3.2) (0.9-3.2) [place] # (Auto) 0.7 H K/mm3 0.7 H K/mm3 (0.1-0.6) (0.1-0.6) Eos # (Auto) 0.1 K/mm3 0.1 K/mm3 (0-0.3) (0-0.3) Baso # (Auto) 0.1 K/mm3 0.0 K/mm3 (0.0-0.1) (0.0-0.1) Abs Immat Gran (auto) 0.02 K/mm3 0.07 H K/mm3 (0.00-0.031) (0.00-0.031) Absolute Neuts (auto) 7.4 H K/mm3 6.9 H K/mm3 (1.3-6.7) (1.3-6.7) Absolute Nucleated RBC 0.000 K/mm3 0.000 K/mm3 (0.0-0.012) (0.0-0.012) Nucleated RBC % 0.0 % 0.0 % (0.0-0.2) (0.0-0.2) Sodium 130 L mmol/L 134 L mmol/L (137-145) (137-145) Potassium 4.1 mmol/L 3.9 mmol/L (3.4-5.0) (3.4-5.0) Chloride 92 L mmol/L 101 mmol/L (98-107) (98-107) Carbon Dioxide 26 mmol/L 24 mmol/L (22-30) (22-30) Anion Gap 12 mmol/L 9 mmol/L (4-12) (4-12) BUN 13 mg/dL 11 mg/dL (9-20) (9-20) Creatinine 1.10 mg/dL 1.00 mg/dL (0.7-1.3) (0.7-1.3) Estim Creat Clear Calc 71 ml/min 87 ml/min Estimated GFR > 60 > 60 (59 - ) (59 - ) Glucose 115 H mg/dL 117 H mg/dL (65-110) (65-110) Lactic Acid 0.8 mmol/L (0.7-2.0) Calcium 9.0 mg/dL 8.3 L mg/dL (8.4-10.2) (8.4-10.2) Total Bilirubin 0.7 mg/dL (0.2-1.3) AST 44 U/L (17-59) ALT 52 H U/L (6-50) Alkaline Phosphatase 105 U/L (38-126) C-Reactive Protein 17.2 H mg/dL (<1.0) Total Protein 8.0 g/dL (6.3-8.2) Albumin 4.5 g/dL (3.5-5.1) Patient hx anesthesia problems: none Family hx anesthesia problems: none Results Review: All pre-operative results and documents have been reviewed as part of the pre-operative evaluation. 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
--- NOTE | 2024-04-14 13:37 | W.PM.PROC2 ---
Procedure Note - Detailed Date of Procedure 04/14/24 Pre-op Diagnosis Abscess Post-op Diagnosis Same Procedure Performed LEFT KNEE INCISION AND DRAINAGE WITH IRRIGATION AND DEBRIDEMENT OF PRE PATELLA ABSCESS DOWN TO TENDON AND BONE Surgeon Reji Cole MD Anesthesia General Findings GROSS PURULENCE Description of Procedure PATIENT WAS TAKEN TO THE OPERATING ROOM AND THE LEFT LEG WAS PREPPED AND DRAPED IN THE USUAL STERILE FASHION. THE PRE PATELLA ABSCESS WAS IDENTIFIED AND THE SKIN WAS INCISED DOWN THROUGH THE SUBCUTANEOUS TISSUES UNTIL THE PRE PATELLA SPACE WAS ENTERED. COPIOUS AMOUNTS OF PURULENCE WAS DRAINED FROM THE SPACE AND CULTURES WERE TAKEN. DISSECTION CONTINUED UNTIL THE SPACE WAS WIDELY INSPECTED. THE BURSAE WAS REMOVED WITH DEEP DISSECTION FROM THE TIBIAL TUBERCLE TO THE DISTAL POLE OF THE PATELLA USING A SHARP KNIFE AND RONGEUR. THERE WAS FAT NECROSIS EXTENSIVELY WITH A SHARP KNIFE AND RONGEUR WHICH WAS EXCISED. THERE WAS GOOD BLEEDING TISSUE. THE PATELLA TENDON WAS NOT VIOLATED. THE WOUND THEN WAS IRRIGATED WITH 4 LITERS OF FLUID AND STERILE BETADINE. A DRAIN WAS PLACE IN THE PRE PATELLA SPACE. THE SKIN WAS REPAIRED WITH 3- PROLINE IN A LOOSE FASHION. STERILE DRESSING WAS APPLIED. THE PATIENT WAS EXTUBATED AND SENT TO THE RECOVERY ROOM. Estimated Blood Loss 50 Drains Yes Pathology Other (MICRO SPECIMEN) Complications No immediate complications Condition Stable Disposition PACU
--- NOTE | 2024-04-14 15:19 | PC.NURSE ---
Returned from OR per [ ]. Report received from [Adelaide].
[2024-04-14] MEDS: cefTRIAXone 2 GM/NS 100 ML 2 GM/100 ML BAG IVPB (15:52)
[2024-04-14] MEDS: LACTATED RINGERS 1,000 ML 150 ML IV CONT (17:12)
[2024-04-15] VITALS (7 sets, daily range): BP systolic 125–127; BP diastolic 66–68; PULSE 83–97; RESP 15–16; TEMP 36.8–38.5; O2SAT 95–98
[2024-04-15] MEDS: ACETAMINOPHEN 325 MG TABLET 650 MG PO (05:38)
[2024-04-15 06:49] LABS: Hematocrit 28.7 % (42.0-52.0); Hemoglobin 9.5 g/dL (14.0-18.0); Mean Corpuscular HGB Conc 33.1 g/dl (32-36); Mean Corpuscular Hemoglobin 29.8 pg (26-34); Mean Platelet Volume 9.6 fl (7.4-10.4); Platelet Count Result 257 k/mm3 (150-375); Red Blood Count 3.19 M/mm3 (4.6-6.20); Red Cell Distribution Width 13.2 % (11.5-14.5); White Blood Count 7.2 K/mm3 (4.5-10.0)
[2024-04-15 07:17] LABS: Alanine Aminotransferase 44 U/L (6-50); Albumin Level 3.1 g/dL (3.5-5.1); Alkaline Phosphatase 93 U/L (38-126); Anion Gap 8 mmol/L (4-12); Aspartate Amino Transferase 43 U/L (17-59); Bilirubin,Total 0.5 mg/dL (0.2-1.3); Blood Urea Nitrogen 8 mg/dL (9-20); Calcium 7.7 mg/dL (8.4-10.2); Carbon Dioxide 25 mmol/L (22-30); Chloride 98 mmol/L (98-107); Estimated CRCL calculation 108 ml/min; Estimated Glomerular Filt Rate > 60; Glucose 111 mg/dL (65-110); Potassium 3.9 mmol/L (3.4-5.0); Sodium 131 mmol/L (137-145)
[2024-04-15] MEDS: lisinopriL 20 MG TABLET PO (08:08)
[2024-04-15] MEDS: PANTOPRAZOLE 40 MG TABLET PO (08:08)
[2024-04-15 08:15] LABS: CRP 19.8 mg/dL (<1.0)
[2024-04-15] MEDS: cefTRIAXone 2 GM/NS 100 ML 2 GM/100 ML BAG IVPB (10:00)
[2024-04-15] MEDS: VANCOMYCIN 2,000 MG/NS 500 ML 2,000 MG/500 ML BAG 250 MG IVPB ×2 (10:41→18:14)
--- NOTE | 2024-04-15 10:47 | PM.PNORT ---
Progress Note: A&P Assessment and Plan (1) Cutaneous abscess of left knee: Code(s): L02.416 - Cutaneous abscess of left lower limb Status: Acute Assessment and Plan: POD 1 IMPROVING DESPITE FEVER SPIKE. HIS WBC COUNT HAS DECREASED WELL. RECOMMEND CONTINUE IV ABX UNTIL WE HAVE A FINAL ON THE INTRA OPERATIVE CULTURES FOR ORGANISM AND SENSITIVITY. AGREE WITH ID PROTOCOL PER ANJALI REN PharmD DEPENDING ON ORGANISM SENSITIVITY. WILL PULL DRAIN TODAY. PATIENT WILL F/U IN 2 WEEKS FOE ORTHO AT TIME OF DISCHARGE. (2) Prepatellar bursitis, left knee: Code(s): M70.42 - Prepatellar bursitis, left knee Status: Acute Subjective Subjective Date/Time Seen: 04/15/24 10:47 Interval history: POD 1 DOING WELL. FEVER SPIKE TO 101.3. MINIMAL PAIN IN THE KNEE. MOVING KNEE WITH WELL WITH AROM AND WITH PAIN Exam Extrem: Other: VSS AFEBRILE NOW, NV INTACT DRESSING DRY DRAIN IN PLACE WITH SCANT DRAINAGE, CELLULITIS DECREASED, CALF SOFT NON TENDER, NEG HOMANS SIGN, AROM/PROM OF KNEE WITH MINIMAL PAIN, WOUND CLEAN WITH NO ACTIVE DRAINAGE Objective Data Vital Signs Vital Signs: Vital Signs - 24 hr 04/14/24 11:39 04/14/24 14:33 04/14/24 14:45 Temperature 36.6 C 36.4 C L Pulse Rate 64 88 76 Respiratory Rate 18 14 13 Blood Pressure 113/63 132/75 133/78 Pulse Oximetry 100 99 97 Oxygen Delivery Room Air Room Air Room Air 04/14/24 15:00 04/14/24 15:15 04/14/24 15:30 Temperature Pulse Rate 79 75 75 Respiratory Rate 19 12 15 Blood Pressure 126/76 130/74 130/73 Pulse Oximetry 100 100 100 Oxygen Delivery Room Air Room Air Room Air 04/14/24 21:02 04/14/24 21:27 04/14/24 22:02 Temperature 38.8 C H 38.8 C H 37.3 C Pulse Rate 96 Respiratory Rate 15 Blood Pressure 119/64 Pulse Oximetry 100 Oxygen Delivery 04/15/24 05:38 04/15/24 06:02 04/15/24 06:38 Temperature 38.4 C H 38.5 C H 37.1 C Pulse Rate 97 Respiratory Rate 15 Blood Pressure 125/66 Pulse Oximetry 95 Oxygen Delivery 04/15/24 07:00 04/15/24 09:09 Temperature 37.1 C Pulse Rate Respiratory Rate Blood Pressure Pulse Oximetry 97 Oxygen Delivery Room Air Intake/Output Intake/Output: Intake & Output 04/12/24 04/13/24 04/14/24 04/15/24 23:59 23:59 23:59 23:59 Intake Total 1050 3310 1700 Output Total 50 60 Balance 1050 3260 1640 Meds/Results Medications: Active Medications Generic Name Dose Route Start Last Admin Trade Name Freq PRN Reason Stop Dose Admin Acetaminophen 650 mg 04/14/24 05:23 04/15/24 05:38 Acetaminophen 325 Mg Tablet PO 650 mg Q4H PRN Administration Mild Pain (1-3) or Fever Calcium Carbonate 200 mg 04/14/24 05:25 Calcium Carbonate (Tums) 500 Mg (200 Mg Elemental) PO Q6H PRN Indigestion Ceftriaxone Sodium 2 gm in 100 mls @ 200 mls/hr 04/14/24 16:00 04/15/24 10:30 Rocephin 2 Gm/Ns 100 Ml IVPB Infused DAILY@1100 MACI Infusion Vancomycin HCl 2,000 mg in 500 mls @ 250 mls/hr 04/15/24 11:00 04/15/24 10:41 Vancomycin 2,000 Mg/Ns 500 Ml IVPB 250 mls/hr Q8H MACI Administration Ibuprofen 600 mg 04/14/24 05:23 04/14/24 05:33 Ibuprofen 600 Mg Tablet PO 600 mg Q6H PRN Administration Pain 4-6 or intractable fever Lisinopril 20 mg 04/14/24 09:00 04/15/24 08:08 Lisinopril 20 Mg Tablet PO 20 mg DAILY MACI Administration Morphine Sulfate 2 mg 04/14/24 05:23 Morphine Sulfate (*Crx) 2 Mg/Ml Inj IV PUSH Q4H PRN Pain Rated 7-10 Ondansetron HCl 4 mg 04/14/24 05:25 Ondansetron Inj 4 Mg/2 Ml Vial IV PUSH Q6H PRN Nausea And Vomiting Pantoprazole Sodium 40 mg 04/14/24 09:00 04/15/24 08:08 Pantoprazole 40 Mg Tablet PO 40 mg QAM MACI Administration Radiology Results: ITS Impressions Tibia/Fibula CT 04/13/24 19:00 IMPRESSION: 9.0 cm subcutaneous abscess in the anterior knee. Diffuse lower extremity edema/cellulitis. Knee X-Ray 04/14/
--- NOTE | 2024-04-15 13:58 | WPDANESPN ---
Anes - Prog Note Post-Op Date/Time: 04/15/24 13:58 Cardiovascular status: normal Respiratory status: normal Airway patency: baseline Mental status: baseline Post-Op hydration status: normal Vital Signs: Last Vital Signs Temp 37.1 C 04/15/24 07:00 Pulse 97 04/15/24 06:02 Resp 15 04/15/24 06:02 BP 125/66 04/15/24 06:02 Pulse Ox 97 04/15/24 09:09 O2 Del Method Room Air 04/15/24 09:09 Pain Score (VAS): 0 I/O: Intake & Output 04/14/24 04/15/24 04/15/24 23:59 07:59 15:59 Intake Total 840 1000 700 Output Total 50 60 Balance 790 940 700 Laboratory Tests 04/15/24 06:12 04/15/24 06:12 04/15/24 04/15/24 06:12 08:48 WBC 7.2 RBC 3.19 L Hgb 9.5 L Hct 28.7 L MCV 90.0 MCH 29.8 MCHC 33.1 RDW 13.2 Plt Count 257 MPV 9.6 Sodium 131 L Potassium 3.9 Chloride 98 Carbon Dioxide 25 Anion Gap 8 BUN 8 L Creatinine 0.80 Estim Creat Clear Calc 108 Estimated GFR > 60 Glucose 111 H Calcium 7.7 L Total Bilirubin 0.5 AST 43 ALT 44 Alkaline Phosphatase 93 C-Reactive Protein 19.8 H Total Protein 6.0 L Albumin 3.1 L Vancomycin Trough 8.0 L Microbiology 04/14/24 13:53 Abscess Anaerobic Culture - Preliminary 04/13/24 17:46 Blood Blood Culture - Preliminary 04/13/24 17:40 Blood Blood Culture - Preliminary Post-procedural complaints: none Patient Feedback: Patient satisfied with anesthetic care.
--- NOTE | 2024-04-15 14:01 | PM.IMPN ---
Progress Note: A&P Assessment and Plan (1) Cutaneous abscess of left knee: Code(s): L02.416 - Cutaneous abscess of left lower limb Status: Acute (2) Hypertension: Qualifiers: Hypertension type: primary hypertension Qualified Code(s): I10 - Essential (primary) hypertension Code(s): I10 - Essential (primary) hypertension Status: Acute (3) Sepsis without septic shock: Code(s): A41.9 - Sepsis, unspecified organism Status: Acute Plan Sepsis fever 103, tachycardia and infection of the LT knee Fever 101.3 this morning 1L NS in ED Zosyn discontinued at continue cefepime and vanc for now Monitor lactic acid levels q6hr. 0.8 POA Repeat CBC, CMP. Two sets of blood cultures no growth today C-reactive proteins 19.8 Abscess of left knee Septic Joint?? Ct 9.0 cm subcutaneous abscess in the anterior knee. Diffuse lower extremity edema/cellulitis. Ortho consulted for possible aspiration Continue cefepime and vanc Pain control blood cultures no growth today Lactic WNL culture fluid Antipyretics for fever Fever of unknown origin. Temperature on arrival 100.5 Peaked at 103.2 Tylenol Blood cultures ordered Current temp better at 98.8 Was noted to be 101.3 this am HX HTN: Resumed lisinopril Code status: Full code per patient DVT prophylaxis: Lovenox Stress ulcer prophylaxis: Protonix 40 daily PT/OT notes: Ambulatory Disposition: Patient admitted to the medical unit for further evaluation of abscess/septic joint of the left knee, ortho consulted will continue with empiric antibiotics plan for aspiration later today. Patient plan is to return home when medically stable. Time Spent With Patient Time: 48 minutes Time with patient: Greater than 35 minutes Subjective Date/time seen: 04/15/24 14:01 Interval history: Admission: 59-year-old male with a past medical history of essential hypertension daughters function who presented to the ER after referral from urgent care due to left knee swelling and erythema that is getting worse over the last 2 weeks. 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 He noticed that about 2 weeks ago he developed an area of erythema that was initially about the size of a quarter on his anterior knee. Initially there was no associated tenderness but he did develop tenderness this past week and has had progressive swelling. The swelling was initially localized around the anterior knee but now his calf and foot have become swollen as well. On and off throughout the last week he has had intermittent rigors and subjective fevers. He did not check his temperature. His temperature on arrival to the ER was 100.5?. He reported that he thought that it would eventually get better and he did not want to miss work so he just waited. Today he felt bad enough that he went to urgent care and they referred him to come here to rule out a septic joint. The patient reports that he can ambulate without difficulty but does have a little bit of discomfort. The discomfort is worse when he bends his knee or puts direct pressure on the area. Pain is 5/10 in intensity and aching. He has tried some ibuprofen at home without relief in symptoms. A CT scan with contrast were performed in the ED which demonstrated a 4.4 x 9 x 7.8 cm abscess without joint involvement but with overlying dermal thickening and edema consistent with cellulitis. In on exam patient is noted to have edema down the anterior leg and into the foot. He reports that part of why he came in today was because he had difficulty getting his boot on to go to work. He denies a prior history of prior skin infections. He denies any other symptoms. 04/14/2024: Assumed Care Patient LT with significant swelling, erythema and pain 9/10 unable to bear weight, plan is for aspiration today send for culture. Patient was oct
[2024-04-16] MEDS: VANCOMYCIN 2,000 MG/NS 500 ML 2,000 MG/500 ML BAG 250 MG IVPB ×2 (03:55→11:13)
[2024-04-16 05:46] VITALS: BP 124/74; PULSE 76; RESP 20; TEMP 36.4; O2SAT 99
[2024-04-16 07:52] LABS: Hematocrit 31.3 % (42.0-52.0); Mean Corpuscular HGB Conc 31.9 g/dl (32-36); Mean Corpuscular Hemoglobin 29.1 pg (26-34); Mean Platelet Volume 9.7 fl (7.4-10.4); Platelet Count Result 304 k/mm3 (150-375); Red Blood Count 3.44 M/mm3 (4.6-6.20); Red Cell Distribution Width 13.1 % (11.5-14.5); White Blood Count 6.1 K/mm3 (4.5-10.0)
[2024-04-16 07:58] LABS: Alanine Aminotransferase 74 U/L (6-50); Albumin Level 3.3 g/dL (3.5-5.1); Alkaline Phosphatase 87 U/L (38-126); Anion Gap 7 mmol/L (4-12); Aspartate Amino Transferase 61 U/L (17-59); Bilirubin,Total 0.3 mg/dL (0.2-1.3); Blood Urea Nitrogen 7 mg/dL (9-20); Calcium 8.3 mg/dL (8.4-10.2); Carbon Dioxide 30 mmol/L (22-30); Chloride 100 mmol/L (98-107); Estimated CRCL calculation 108 ml/min; Estimated Glomerular Filt Rate > 60; Glucose 109 mg/dL (65-110); Magnesium 2.5 mg/dL (1.6-2.3); Potassium 4.1 mmol/L (3.4-5.0); Sodium 137 mmol/L (137-145)
[2024-04-16] MEDS: PANTOPRAZOLE 40 MG TABLET PO (09:54)
[2024-04-16] MEDS: lisinopriL 20 MG TABLET PO (09:54)
[2024-04-16 10:48] LABS: Vancomycin Trough 19.1 ug/mL (10.0-20.0)
[2024-04-16] MEDS: cefTRIAXone 2 GM/NS 100 ML 2 GM/100 ML BAG IVPB (11:13)
--- NOTE | 2024-04-16 11:58 | PM.DS ---
DS: Admitting Diagnosis Discharge Date 04/16/2024 1000 Admitting Diagnosis Septic joint DS: Discharge Diagnosis Discharge Diagnosis (1) Cutaneous abscess of left knee: Code(s): L02.416 - Cutaneous abscess of left lower limb Status: Acute (2) Hypertension: Qualifiers: Hypertension type: primary hypertension Qualified Code(s): I10 - Essential (primary) hypertension Code(s): I10 - Essential (primary) hypertension Status: Acute (3) Sepsis without septic shock: Code(s): A41.9 - Sepsis, unspecified organism Status: Acute Plan Sepsis fever 103, tachycardia and infection of the LT knee Fever 101.3 this morning 1L NS in ED Zosyn discontinued at continue cefepime and vanc for now Monitor lactic acid levels q6hr. 0.8 POA Repeat CBC, CMP. Two sets of blood cultures no growth today C-reactive proteins 19.8 Abscess of left knee Septic Joint?? Ct 9.0 cm subcutaneous abscess in the anterior knee. Diffuse lower extremity edema/cellulitis. Ortho consulted for possible aspiration Continue cefepime and vanc Pain control blood cultures no growth today Lactic WNL culture fluid Antipyretics for fever Fever of unknown origin. Temperature on arrival 100.5 Peaked at 103.2 Tylenol Blood cultures ordered Current temp better at 98.8 Was noted to be 101.3 this am HX HTN: Resumed lisinopril Code status: Full code per patient DVT prophylaxis: Lovenox Stress ulcer prophylaxis: Protonix 40 daily PT/OT notes: Ambulatory Disposition: Patient admitted to the medical unit for further evaluation of abscess/septic joint of the left knee, ortho consulted will continue with empiric antibiotics plan for aspiration later today. Patient plan is to return home when medically stable. DS: Summary Hospital Course Hospital Course: Patient is a 59-year-old male with a past medical history of hypertension who presented the ED with complaints of left knee swelling, redness, pain over the last 2 weeks. In the ER temperature was a maybe 100.5. Patient was taken to the OR by Orthopedic surgery who did place a drain. Patient was initiated on cefepime and vanc. Patient did have a fever throughout the week indicated size 103. Currently patient is doing better today he denies any current chest pain, shortness a breath, nausea, vomiting, diarrhea constipation. Patient will be discharged on oral antibiotics for 19 days. Patient verbalized understanding. Patient will need off work until he follows up with Orthopedic surgery in 2 weeks. Currently patient is stable for discharge. Time spent discussing smoking cessation with patient: more than 10 minutes Status at Discharge Functional status at discharge: independent ambulation Overall status at discharge: patient is progressing back to baseline Time Spent with Patient Time attestation: Total time spent providing and/or coordinating discharge services: 48 minutes Time spent: Greater than 30 minutes Specific discharge activities: Diagnostic testing, chart review, developing a treatment plan, education, care coordination documentation, physical exam, result review Exam Narrative: General: well-nourished, ill-appearing 59-year-old female, sitting up in bed, comfortable, NARD Neuro: awake, alert and oriented x4, speech clear, no focal neuro deficits noted HEENMT: normocephalic, atraumatic, EOMI, sclerae anicteric, moist oral mucosa Respiratory: Clear to auscultation bilaterally without crackles, rhonchi or wheezes, nonlabored breathing Cardio: regular rate, regular rhythm with S1-S2 Abdomen: nondistended, normoactive bowel sounds, soft, nontender to palpation Extremities: Left-sided edema 4+ pitting redness to the knee with drain present Skin: no rashes or lesions, warm and dry Psych: appropriate mood and affect, judgment and insight intact DS: Data Data Completed and Pending Labs on day of discharge:
[2024-04-16 14:00] VITALS: BP 131/58; PULSE 90; RESP 18; TEMP 36.5; O2SAT 100
--- NOTE | 2024-04-16 14:06 | PM.PNORT ---
Progress Note: A&P Assessment and Plan (1) Septic infrapatellar bursitis of left knee: Code(s): M71.162 - Other infective bursitis, left knee; B96.89 - Other specified bacterial agents as the cause of diseases classified elsewhere Status: Acute Assessment and Plan: 2 days status post debridement left knee. Culture shows Staph aureus with concern for MRSA. Continue IV antibiotics until sensitivities back. Continue with wound care for the left knee. Range of motion and weight-bearing as tolerated. Plan for discharge home once his antibiotic regimen is known. Follow-up with Dr. Cole in orthopedic office. Subjective Subjective Date/Time Seen: 04/16/24 14:07 Post Op day: 2 Principal diagnosis: Left knee septic bursitis with abscess Interval history: postoperative day 2 left knee debridement. Moderate swelling around the knee and incision. Slightly improved today. No new complaints. Exam Const: General: comfortable; No acute distress Resp: Effort & Inspection: normal respiratory effort and no audible wheezes Extrem: Right lower extremity: lower leg ( Negative Homans sign), ankle Details: normal ROM ( dorsiflexion and plantar flexion intact) and foot Details: vascular exam Details: dorsalis pedis pulse present and normal capillary refill, tendon exam Details: active flexion normal and active extension normal and motor-sensory exam Details: light-touch normal Location: in all toes; no edema Left lower extremity: normal to inspection, ankle Details: normal ROM and foot Details: vascular exam Details: dorsalis pedis pulse present and normal capillary refill and motor-sensory exam light-touch normal in all toes; no edema Other: Left knee incision clean dry and intact. Moderate swelling around the incision which is improved. Mild erythema. Objective Data Vital Signs Vital Signs: Vital Signs - 24 hr 04/15/24 17:14 04/15/24 20:37 04/16/24 05:46 Temperature 98.3 F 98.9 F 97.5 F L Pulse Rate 86 83 76 Respiratory Rate 15 16 20 Blood Pressure 127/68 125/66 124/74 Pulse Oximetry 98 98 99 Oxygen Delivery 04/16/24 08:00 Temperature Pulse Rate Respiratory Rate Blood Pressure Pulse Oximetry Oxygen Delivery Room Air Intake/Output Intake/Output: Intake & Output 04/13/24 04/14/24 04/15/24 04/16/24 23:59 23:59 23:59 23:59 Intake Total 1050 3310 3040 1880 Output Total 50 60 Balance 1050 3260 2980 1880 Meds/Results Medications: Active Medications Generic Name Dose Route Start Last Admin Trade Name Freq PRN Reason Stop Dose Admin Acetaminophen 650 mg 04/14/24 05:23 04/15/24 05:38 Acetaminophen 325 Mg Tablet PO 650 mg Q4H PRN Administration Mild Pain (1-3) or Fever Calcium Carbonate 200 mg 04/14/24 05:25 Calcium Carbonate (Tums) 500 Mg (200 Mg Elemental) PO Q6H PRN Indigestion Ceftriaxone Sodium 2 gm in 100 mls @ 200 mls/hr 04/14/24 16:00 04/16/24 11:43 Rocephin 2 Gm/Ns 100 Ml IVPB Infused DAILY@1100 MACI Infusion Vancomycin HCl 2,000 mg in 500 mls @ 250 mls/hr 04/15/24 11:00 04/16/24 13:13 Vancomycin 2,000 Mg/Ns 500 Ml IVPB Infused Q8H MACI Infusion Ibuprofen 600 mg 04/14/24 05:23 04/14/24 05:33 Ibuprofen 600 Mg Tablet PO 600 mg Q6H PRN Administration Pain 4-6 or intractable fever Lisinopril 20 mg 04/14/24 09:00 04/16/24 09:54 Lisinopril 20 Mg Tablet PO 20 mg DAILY MACI Administration Morphine Sulfate 2 mg 04/14/24 05:23 Morphine Sulfate (*Crx) 2 Mg/Ml Inj IV PUSH Q4H PRN Pain Rated 7-10 Ondansetron HCl 4 mg 04/14/24 05:25 Ondansetron Inj 4 Mg/2 Ml Vial IV PUSH Q6H PRN Nausea And Vomiting Pantoprazole Sodium 40 mg 04/14/24 09:00 04/16/24 09:54 Pantoprazole 40 Mg Tablet PO 40 mg QAM MACI Administration Radiology Results: ITS Impressions Tibia/Fibula CT 04/13/24 19:00 IMPRESSION: 9.0 cm subcutaneous abscess in the anterior knee
--- NOTE | 2024-04-16 14:27 | PC.NURSE ---
RN provided pt with Mepilex silver to take with him.
== END 2024-04-16 14:30 | disposition home or self-care (01) | DRG 549 ==
LOC: ANHED 20:36 → ANH3MEDSUR 21:14
PROVIDERS: Nurse Practitioner Family; Orthopaedic Surgery; Physician Assistant; Admitting Provider Internal Medicine; Emergency Provider Emergency Medicine; PCP Family Medicine; Visit Provider Nurse Practitioner
PROC: 0Y9G0ZX Drainage of Left Knee Region, Open Approach, Diagnostic (ICD-10-PCS; principal; 2024-04-14 13:00)
DX: M00.062 Staphylococcal arthritis, left knee (principal); L03.116 Cellulitis of left lower limb; M70.42 Prepatellar bursitis, left knee; I10 Essential (primary) hypertension
CPT/HCPCS: 36415; 73562; 73701; 80048; 80053; 80202; 83605; 83735; 85025; 85027; 86140; 87040; 87070; 87075; 87077; 87181; 87205; 93005; 96360; 99212; 99285; A9270; G0463; J0696; J1580; J2270; J2405; J2543; J3010; J3370; J7030; J7120; Q9967

== ENCOUNTER 2024-05-05 08:56 | Inpatient (IN) | payer BC, SELFPAY ==
[2024-05-05] VITALS (8 sets, daily range): BP systolic 114–136; BP diastolic 62–73; PULSE 84–91; RESP 16–20; TEMP 37.1–38.4; O2SAT 93–100; BMI 28.0
--- NOTE | ~2024-05-05 | CT_ITS ---
CT brain wo con Ordering provider: Orlando Reynolds MD History: 59 years Male with . DIZZINESS . Comparison: None. Technique: CT of the head without contrast. Radiation reduction technique utilized. DLP is 605.33 mGy-cm. FINDINGS: BRAIN PARENCHYMA AND CSF SPACES: No midline shift, mass effect or hemorrhage. The brain parenchyma a nd CSF spaces are otherwise normal. VISUALIZED PARANASAL SINUSES: Well aerated. MASTOIDS: Well aerated. BONES: The bones appear intact. SOFT TISSUES: Visualized nasopharynx is normal. Superficial soft tissues are normal. IMPRESSION: No acute intracranial findings. Reviewed, dictated and finalized at location A.
--- NOTE | ~2024-05-05 | XR_ITS ---
XR chest 2V Ordering provider: Orlando Reynolds MD History: 59 years Male with . weakness, near syncopal . Comparison: None. FINDINGS: MEDIASTINUM: The cardiac silhouette is not enlarged. LUNGS: No effusions or pneumothorax. Opacification the right lung base suggestive of atelectasis vers us pneumonia. OTHER: No free air under the diaphragm. IMPRESSION: Right basal pneumonia. Reviewed, dictated and finalized at location A. IMPRESSION: Right basal pneumonia.
--- NOTE | ~2024-05-05 | US_ITS ---
EXAMINATION: US abdomen limited DATE: 05/05/2024 22:25 INDICATION: transaminitis, elevated lipase TECHNIQUE: Multiple grayscale and Doppler ultrasound images of limited portions of the abdomen were o btained. COMPARISON: CT cap 05/05/2024. FINDINGS: Pancreas not well visualized. The liver is normal with normal echogenicity and echotexture. No surface nodularity. Normal hepatopetal flow in the main portal vein. The gallbladder is partially contracted, with resulting mild wall thickening to 4 mm. No pericholecystic fluid or stones. The com mon bile duct measures 4 mm. There was no sonographic Del Valle sign. IMPRESSION: Pancreas not well visualized. Mild gallbladder wall thickening likely secondary to partial contractio n. Reviewed, dictated and finalized at location K. IMPRESSION: Pancreas not well visualized. Mild gallbladder wall thickening likely secondary to partial contraction.
--- NOTE | ~2024-05-05 | CT_ITS ---
CT chest abdomen pelvis w con Ordering provider: Dariela Nolan APRN History: 59 years Male with . transaminitis, elevated Lipase, pneumonia . Comparison: None. Technique: CT chest with IV contrast. CT abdomen and pelvis CT abdomen and pelvis with IV and without oral contrast. Radiation reduction technique utilized. DLP is 1147.11 mGy-cm. FINDINGS: --VISUALIZED THORACIC INLET: Normal. Nodule in the left lobe of the thyroid measuring 1.1 cm. Ultrasound evaluation advised. --MEDIASTINUM: Aorta/coronary arteries: Mild atheromatous disease. Heart/other: The heart is not enlarged. Prominent pulmonary vessels which may indicate pulmonary hype rtension. Lymph nodes: No mediastinal or hilar adenopathy. Other: Normal. --LUNGS: Groundglass appearance seen in both lower lobes and right middle lobe suggestive of atypical or viral pneumonia. No pulmonary nodules or masses. No effusions. No pneumothorax. --MUSCULOSKELETAL: Soft tissues: The superficial soft tissues are normal. Bones: Age appropriate degenerative changes of the spine. ABDOMEN/PELVIS: --MUSCULOSKELETAL: Bones: Age appropriate degenerative changes of the spine. Bilateral sacroiliacs. Superficial soft tissues: Bilateral fat containing small inguinal areas. The superficial soft tissues are normal. --UPPER ABDOMINAL ORGANS: Liver: Tiny cyst in the segment #7. Gallbladder: Contracted. Spleen: Normal. Stomach/duodenum: Normal. Small sliding hiatus hernia. Pancreas: Normal. Adrenals: Normal. Kidneys: Minimal renal pelvis fullness is noted. --PELVIC ORGANS: The bladder shows slightly thickened anterior wall. No bladder stones. --BOWEL AND MESENTERY: Colon: No evidence of diverticulitis.. Normal appendix. Small Bowel: Normal. No obstruction. Peritoneum/mesentery: No free air or free fluid. No mesenteric lymphadenopathy. --RETROPERITONEUM: Mild atheromatous disease of the abdominal aorta. No retroperitoneal lymphadenop athy. IMPRESSION: CHEST: 1. Bilateral groundglass appearance in the lower lobes and right middle lobe suggestive of atypical or viral pneumonia. Follow-up advised. 2. Small nodule in the left lobe of the thyroid. Ultrasound evaluation advised. 3. Prominent pulmonary vessels which may indicate pulmonary hypertension. ABDOMEN/PELVIS: 1. No evidence of acute abdominal process. 2. Tiny cyst in the right lobe of the liver. 3. Minimal fullness of the renal pelvis bilaterally. 4. Slightly thickened wall of the urinary bladder anteriorly. Evaluation for cystitis and follow-up advised. 5. Small bilateral fat-containing inguinal hernias. Reviewed, dictated and finalized at location A. IMPRESSION: CHEST: 1. Bilateral groundglass appearance in the lower lobes and right middle lobe s uggestive of atypical or viral pneumonia. Follow-up advised. 2. Small nodule in the left lobe of the thyroid. Ultrasound evaluation advised . 3. Prominent pulmonary vessels which may indicate pulmonary hypertension. ABDOMEN/PELVIS: 1. No evidence of acute abdominal process. 2. Tiny cyst in the right lobe of the liver. 3. Minimal fullness of the renal pelvis bilaterally. 4. Slightly thickened wall of the urinary bladder anteriorly. Evaluation for c ystitis and follow-up advised. 5. Small bilateral fat-containing inguinal hernias.
--- NOTE | ~2024-05-05 | US_ITS ---
EXAMINATION: US thyroid DATE: 05/05/2024 22:26 INDICATION: Thyroid nodule. TECHNIQUE: Multiple ultrasound images of the thyroid were obtained. COMPARISON: None. FINDINGS: The right thyroid lobe measures 4.5 x 1.8 x 1.7 cm. The left thyroid lobe measures 4.0 x 1.8 x 1.5 c m. In the thyroid isthmus, there is an 11 mm almost entirely cystic nodule (TI-RADS TR1). IMPRESSION: 1. Benign thyroid nodule. No follow-up is needed. Reviewed, dictated and finalized at location A.
--- NOTE | 2024-05-05 08:59 | ECG_ITS ---
Test Date: 2024-05-05 09:04:51 Measurements Intervals [place] Rate: 87 P: 4 VT: 153 QRS: 14 QRSD: 109 T: 33 QT: 330 QTc: 399 Interpretive Statements SINUS RHYTHM INCOMPLETE RIGHT BUNDLE BRANCH BLOCK [90+ ms QRS DURATION, TERMINAL R IN V1/V2, 40+ ms S IN I/aVL/V4/V5/V6] Compared to ECG 04/14/2024 11:03:00 Incomplete right bundle-branch block now present Electronically Signed On 05-05-2024 11:58:52 CDT by Eden Griffiths M.D.
--- NOTE | 2024-05-05 09:05 | ED.WEAKNESS ---
HPI - Weakness General Chief complaint: Weakness Stated complaint: nausea, near syncopal Time Seen by Provider: 05/05/24 09:00 Source: patient and family History of Present Illness HPI Narrative: 59 YEARS OLD WHITE MALE CAME TO THE EMERGENCY ROOM WITH HIS COMPLAINING OF FEELING TERRIBLE STARTED ROUGHLY 5-7 DAYS AGO. PATIENT IS STATUS POST LEFT KNEE SURGERY ON APRIL 14, 2024 HAD BEEN ON ANTIBIOTICS SINCE 20 NOW. PATIENT COMPLAINING OF HEADACHE, NOT FEELING WELL, GENERALLY WEAK, POOR P.O. INTAKE, COULD NOT GO BACK TO WORK TODAY, HIS IS TELLING ME THAT PATIENT BEEN HAVING LOOSE STOOL SINCE HAS BEEN ON ANTIBIOTIC. CURRENTLY FEELING DIZZY AND STIFF ALL OVER. HE DENIES ANY FEVER OR CHILLS, ABDOMINAL PAIN OR CHEST PAIN OR SHORTNESS OF BREATH OR KNEE PAIN. 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 He does not have any children. 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 He drinks about 10-15 beers each weekend. He denies any tobacco or illicit substance use. Code status: Full code Surrogate decision maker: Cathy () Smoking status: Never smoker Second hand tobacco smoke exposure: No Alcohol intake: current Drinks per week: 15 Substance use: never Substance use type: does not use Do You Feel Safe in your Home?: Yes Lack of Transportation: No Lack of Food: Never True Current Housing: I Have Housing Concerned About Future Housing: No Difficulty Paying Gas/Electric Bills: No Difficulty Paying for Meds: No Currently Unemployed: No Education: High School Diploma/GED Difficulty w/ Childcare or Family Care: No Living arrangements: with family Gender identity (if verbalized by the patient): Male Sexual Orientation (if Verbalized by the Patient): Straight or Heterosexual Spiritual care concerns: No Exam Narrative: GENERAL APPEARANCE: WELL-DEVELOPED, WELL-NOURISHED, LOOKS ILL SKIN: NORMAL COLOR HEAD: NORMOCEPHALIC, NONTRAUMATIC EYES: CLEAR CONJUNCTIVA ENT: OROPHARYNX NORMAL, EARS NORMAL, NOSE NORMAL NECK: SUPPLE, NONTENDER CHEST AND RESPIRATORY: AIRWAY PATENT, NO RESPIRATORY DISTRESS, NO ACCESSORY MUSCLE USE HEART: REGULAR RATE/RHYTHM ABDOMEN: SOFT, NONTENDER, NO ORGANOMEGALY, QUIET BOWEL SOUNDS VASCULAR: NORMAL PERIPHERAL PULSES, NORMAL CAPILLARY REFILL. MUSCULOSKELETAL: NORMAL RANGE OF MOTION, NONTENDER BACK NEUROLOGIC: ALERT AND ORIENTED ?3, TEACHING ASSOCIATE IS NORMAL TESTED, NO GROSS MOTOR DEFICIT Course Vital Signs Vital signs: Vital Signs Temperature 37.1 C 05/05/24 09:01 Pulse Rate 88 05/05/24 09:01 Respiratory Rate 20 05/05/24 09:01 Blood Pressure 114/73 05/05/24 09:01 Pulse Oximetry 100 05/05/24 09:01 Oxyge
[2024-05-05 09:16] LABS: Basophils Percent Auto 0.4 % (0.2-1.2); Eosinophils Percent Auto 0.4 % (0-4.4); Hematocrit 31.2 % (42.0-52.0); Hemoglobin 10.5 g/dL (14.0-18.0); Immature Granulocyte Absolute 0.01 K/mm3 (0.00-0.031); Immature Granulocyte Percent A 0.4 % (0-0.5); Lymphocytes Absolute Auto 0.35 K/mm3 (0.9-3.2); Lymphocytes Percent Auto 13.2 % (18.3-44.2); Mean Corpuscular HGB Conc 33.7 g/dl (32-36); Mean Corpuscular Hemoglobin 28.3 pg (26-34); Mean Corpuscular Volume 84.1 fl (80-100); Mean Platelet Volume 10.4 fl (7.4-10.4); Monocytes Absolute Auto 0.1 K/mm3 (0.1-0.6); Monocytes Percent Auto 3.8 % (2.6-8.5); Neutrophils Absolute Auto 2.2 K/mm3 (1.3-6.7); Neutrophils Percent Auto 81.8 % (45.5-73.1); Platelet Count Result 144 k/mm3 (150-375); Red Blood Count 3.71 M/mm3 (4.6-6.20); Red Cell Distribution Width 14.8 % (11.5-14.5); White Blood Count 2.7 K/mm3 (4.5-10.0)
[2024-05-05 09:35] LABS: Alanine Aminotransferase 112 U/L (6-50); Albumin Level 4.1 g/dL (3.5-5.1); Alkaline Phosphatase 86 U/L (38-126); Anion Gap 14 mmol/L (4-12); Aspartate Amino Transferase 85 U/L (17-59); Bilirubin,Total 0.9 mg/dL (0.2-1.3); Blood Urea Nitrogen 12 mg/dL (9-20); Calcium 8.4 mg/dL (8.4-10.2); Carbon Dioxide 19 mmol/L (22-30); Chloride 92 mmol/L (98-107); Estimated CRCL calculation 71 ml/min; Estimated Glomerular Filt Rate > 60; Glucose 113 mg/dL (65-110); Lipase 336 U/L (23-300); Potassium 4.2 mmol/L (3.4-5.0); Sodium 125 mmol/L (137-145)
[2024-05-05] MEDS: SODIUM CHLORIDE 0.9% IV 1,000 ML 999 ML IV CONT (09:45)
[2024-05-05 10:06] LABS: Influenza A QL RT-PCR Negative (Negative); Influenza B QL RT-PCR Negative (Negative); RSV RNA, RT-PCR Negative (Negative); SARS-CoV-2 RNA PCR Negative (Negative)
[2024-05-05 10:18] LABS: Lactic Acid Reflex 1.3 mmol/L (0.7-2.0)
[2024-05-05 10:21] LABS: CRP 4.7 mg/dL (<1.0)
[2024-05-05 10:22] LABS: INR 1.1; Prothrombin Time 15.1 Seconds (11.1-14.7)
[2024-05-05 10:23] LABS: Partial Thromboplastin Time 36.8 Seconds (22.3-36.8)
[2024-05-05 10:37] LABS: Add Urine Microscopic? NO; Appearance Urine Clear (Clear); Bilirubin Urine Negative (Negative); Blood Urine Negative (Negative); Color Urine Yellow (Yellow); Glucose Urine UA Negative (Negative); Ketones Urine Negative (Negative); Leukocyte Esterase Ur Negative LEU/UL (Negative); Nitrate Urine Negative (Negative); Protein Urine Negative (Negative); Specific Grav Ur 1.008 (1.001-1.035); Urobilinogen Urine 0.2 mg/dL (<2.0)
--- NOTE | 2024-05-05 11:04 | PM.IMHP ---
H&P: HPI History of Present Illness Date/Time: 05/05/24 11:04 Chief Complaint: Weakness Narrative: This is a 59-year-old male with a significant past medical history of hypertension, alcohol abuse, erectile dysfunction presents with diarrhea and weakness. Patient reports the following history. Patient was recently admitted on 04/13/2024 due to sepsis and left knee swelling workup at that time showed an abscess of the left knee and orthopedic surgery was consulted at that time. Patient went to the OR on 04/14/2024 and had a left knee I&D with irrigation and debridement. He was on cefepime and vancomycin while in the hospital and then discharged on Augmentin and Bactrim on 04/16/2024. He did see Ortho at some point and had his sutures removed. He was on oral antibiotics until this past Saturday and then started in with loose stools and weakness causing him to present back to the hospital for further workup. Patient denies any fever, chills, nausea, vomiting, abdominal pain, chest pain, shortness a breath. Patient endorses diarrhea with increased episodes of diarrhea last night. Workup in hospital included head CT which was negative. Chest x-ray which shows right basal pneumonia. Initial labs show a white blood cell count of 2.7, RBC 3.71, hemoglobin 10.5, platelet count 144, sodium 125, chloride 92, bicarb 19, anion gap 14, AST 85, ALT 112, C reactive protein 4.7, lipase 336. UA was obtained and was negative. Respiratory panel was negative for influenza a and B, RSV, COVID. Blood cultures were obtained and are pending. EKG showing sinus rhythm with right bundle-branch block, with a rate of 87, QTC 399. Patient was started on Rocephin and azithromycin for community-acquired pneumonia and was given 1 L of normal saline while in the ED. Review of Systems Review of Systems: All systems reviewed & are unremarkable except as noted in HPI and below Constitutional: Constitutional: Reports as per HPI and Reports no additional constitutional complaints Eyes: Eyes: Reports as per HPI and Reports no additional eye complaints ENT: Reports system reviewed and no additional complaints, except as documented and Reports as per HPI Cardiovascular: Cardiovascular: Reports as per HPI and Reports no additional cardiovascular complaints Respiratory: Respiratory: Reports as per HPI and Reports no additional respiratory complaints Gastrointestinal: Gastrointestinal: Reports as per HPI and Reports no additional gastrointestinal complaints Genitourinary: Genitourinary: Reports no additional male genitourinary complaints and Reports as per HPI Musculoskeletal: Musculoskeletal: Reports no additional musculoskeletal complaints and Reports as per HPI Integumentary/Breasts: Skin/Breast: Reports system reviewed and no additional complaints, except as docu and Reports as per HPI Neurologic: Reports system reviewed and no additional complaints, except as documented and Reports as per HPI Psychiatric: Psychiatric: Reports no additional psychiatric complaints and Reports as per HPI [facility] Past Medical History Medical History Erectile dysfunction Essential hypertension Prepatellar bursitis, left knee Septic infrapatellar bursitis of left knee Surgical History Surgical History History of carpal tunnel surgery of right wrist 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 He does not have any children. 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 He drinks about 10-15 beers each weekend.
[2024-05-05] MEDS: AZITHROMYCIN 500 MG/NS 250 ML 500 MG/250 ML BAG 250 MG IVPB (11:06)
--- NOTE | 2024-05-05 12:16 | PC.NURSE ---
This patient, Joey Edwards Jr., was admitted to Medical Room 343-01. Patient/family oriented to hospital policies and general routines including ID bracelet, bed and alarms, visiting hours, pain management, procedures, bathroom and other care routines, personal items, smoking policy, room service/diet, and visiting hours. Information on how to activate the Rapid Response Team has been discussed. Patient/Family are encouraged to report perceived risks to care and to ask questions if they do not understand what they are told or what they should do.
[2024-05-05] MEDS: SODIUM CHLORIDE 0.9% IV 1,000 ML 150 ML IV CONT ×2 (12:28→19:30)
[2024-05-05 18:15] LABS: Sodium 129 mmol/L (137-145)
[2024-05-05] MEDS: ACETAMINOPHEN 325 MG TABLET 650 MG PO (19:58)
[2024-05-06] VITALS (14 sets, daily range): BP systolic 121–150; BP diastolic 60–70; PULSE 86–91; RESP 18; TEMP 37.6–39.3; O2SAT 92–97
[2024-05-06] MEDS: ACETAMINOPHEN 325 MG TABLET 650 MG PO ×4 (02:59→20:45)
[2024-05-06] MEDS: SODIUM CHLORIDE 0.9% IV 1,000 ML 150 ML IV CONT ×2 (03:00→09:09)
[2024-05-06 05:54] LABS: Basophils Percent Auto 0.6 % (0.2-1.2); Hematocrit 25.7 % (42.0-52.0); Hemoglobin 8.6 g/dL (14.0-18.0); Immature Granulocyte Absolute 0.01 K/mm3 (0.00-0.031); Immature Granulocyte Percent A 0.3 % (0-0.5); Lymphocytes Absolute Auto 0.51 K/mm3 (0.9-3.2); Lymphocytes Percent Auto 16.6 % (18.3-44.2); Mean Corpuscular HGB Conc 33.5 g/dl (32-36); Mean Corpuscular Volume 86.5 fl (80-100); Mean Platelet Volume 10.4 fl (7.4-10.4); Monocytes Absolute Auto 0.2 K/mm3 (0.1-0.6); Monocytes Percent Auto 5.5 % (2.6-8.5); Neutrophils Absolute Auto 2.4 K/mm3 (1.3-6.7); Platelet Count Result 118 k/mm3 (150-375); Red Blood Count 2.97 M/mm3 (4.6-6.20); Red Cell Distribution Width 15.1 % (11.5-14.5); White Blood Count 3.1 K/mm3 (4.5-10.0)
[2024-05-06 06:09] LABS: Alanine Aminotransferase 73 U/L (6-50); Albumin Level 2.9 g/dL (3.5-5.1); Alkaline Phosphatase 66 U/L (38-126); Anion Gap 7 mmol/L (4-12); Aspartate Amino Transferase 47 U/L (17-59); Bilirubin,Total 0.3 mg/dL (0.2-1.3); Blood Urea Nitrogen 10 mg/dL (9-20); Calcium 7.7 mg/dL (8.4-10.2); Carbon Dioxide 21 mmol/L (22-30); Chloride 103 mmol/L (98-107); Estimated CRCL calculation 86 ml/min; Estimated Glomerular Filt Rate > 60; Glucose 114 mg/dL (65-110); Sodium 131 mmol/L (137-145)
[2024-05-06 07:17] LABS: Toxigenic C. Diff NEGATIVE (NEGATIVE)
[2024-05-06] MEDS: AZITHROMYCIN 500 MG/NS 250 ML 500 MG/250 ML BAG 250 MG IVPB (09:12)
[2024-05-06] MEDS: lisinopriL 20 MG TABLET PO (09:13)
[2024-05-06] MEDS: ENOXAPARIN 40 MG/0.4 ML SYRINGE SUB-Q (09:14)
[2024-05-06 10:01] LABS: Lactate Dehydrogenase 298 U/L (120-246)
[2024-05-06 10:17] LABS: Vitamin D 25 Hydroxy 32.1 ng/mL
[2024-05-06 10:41] LABS: HIV 1/2 Ab P24 Ag Result Negative (Negative)
[2024-05-06 11:07] LABS: Folic Acid 9.8 ng/mL (2.76->20)
[2024-05-06 12:48] LABS: Iron 18 ug/dL (49-181)
--- NOTE | 2024-05-06 12:51 | P.PNIM_ITS ---
Progress Note: A&P Assessment and Plan (1) Pneumonia: Code(s): J18.9 - Pneumonia, unspecified organism Status: Acute Assessment and Plan: 05/05/24: * Chest x-ray showing right basal pneumonia * Continue Rocephin and azithromycin * Will get CTA chest/abdomen/pelvis * Blood cultures were obtained and are pending 05/06/24: * Continue Rocephin and azithromycin * CTA of the chest shown tiny cyst in the right lobe of the liver, small bilateral fat containing inguinal hernias, slightly thickened wall of the urinary bladder, bilateral ground-glass appearance in the lower lobes and right middle lobe suggestive atypical or viral pneumonia, small nodule in the left lobe of the thyroid, prominent pulmonary vessels indicating pulmonary hypertension. * Blood cultures showing growth to date on preliminary read (2) Pancytopenia: Code(s): D61.818 - Other pancytopenia Status: Acute Assessment and Plan: 05/05/24: * White blood cell count 2.7, RBC 3.71, platelet count 144 * Consider Hematology/Oncology consult * Continue to trend for now * Will get ultrasound of liver 05/06/24: * White blood cell count 3.1, RBC 2.97, hemoglobin 8.6, platelet count 118 * Hematology and Oncology were consulted * Will check iron, vitamin B12, folate, vitamin-D, lactate dehydrogenase, HIV, TB * CT of chest abdomen pelvis showed a tiny cyst in the right lobe of the liver * Ultrasound of the abdomen showing mild gallbladder wall thickening likely secondary to partial contraction (3) Acute hyponatremia: Code(s): E87.1 - Hypo-osmolality and hyponatremia Status: Acute Assessment and Plan: 05/05/24: * Sodium 125 * Patient was given 1 L of normal saline in the ED and started on normal saline at 125 ml/hr * Will recheck sodium around 4:00 p.m. today * Patient does have history of drinking beer 10-15 beers a week however this is likely dehydration due to increased diarrhea 05/06/24: * Sodium 131 today * Continue normal saline at 125 mL/hr * Likely dehydration (4) Hypertension: Qualifiers: Hypertension type: primary hypertension Qualified Code(s): I10 - Essential (primary) hypertension Code(s): I10 - Essential (primary) hypertension Status: Chronic Assessment and Plan: 05/05/24: * Blood pressure ranging 114/73 to 126/63 * Continue lisinopril 05/06/24: * No change to current treatment plan (5) Transaminitis: Code(s): R74.01 - Elevation of levels of liver transaminase levels Status: Acute Assessment and Plan: 05/05/24: * AST 85, ALT 112 * Will get ultrasound of the liver and pancreas * CT of abdomen and pelvis 05/06/24: * CT of the abdomen and pelvis show tiny cyst in the right lobe of the liver * Ultrasound of abdomen showing mild gallbladder wall thickening likely secondary to partial contraction (6) Elevated lipase: Code(s): R74.8 - Abnormal levels of other serum enzymes Status: Acute Assessment and Plan: 05/05/24: * Lipase 336 * Will continue to watch * Will get CT of the abdomen/pelvis * Will also get an ultrasound of the liver and pancreas 05/06/24: * Will recheck lipase * Pancreas was not well visualized on ultrasound (7) Diarrhea: Code(s): R19.7 - Diarrhea, unspecified Status: Acute Assessment and Plan: 05/05/24: * Will check C diff * Patient recently hospitalized with left knee abscess and had a I and D performed on 04/14/2024 and was covered with cefepime and vancomycin IV and
--- NOTE | 2024-05-06 12:51 | PM.IMPN ---
Progress Note: A&P Assessment and Plan (1) Pneumonia: Code(s): J18.9 - Pneumonia, unspecified organism Status: Acute Assessment and Plan: 05/05/24: Chest x-ray showing right basal pneumonia Continue Rocephin and azithromycin Will get CTA chest/abdomen/pelvis Blood cultures were obtained and are pending 05/06/24: Continue Rocephin and azithromycin CTA of the chest shown tiny cyst in the right lobe of the liver, small bilateral fat containing inguinal hernias, slightly thickened wall of the urinary bladder, bilateral ground-glass appearance in the lower lobes and right middle lobe suggestive atypical or viral pneumonia, small nodule in the left lobe of the thyroid, prominent pulmonary vessels indicating pulmonary hypertension. Blood cultures showing growth to date on preliminary read (2) Pancytopenia: Code(s): D61.818 - Other pancytopenia Status: Acute Assessment and Plan: 05/05/24: White blood cell count 2.7, RBC 3.71, platelet count 144 Consider Hematology/Oncology consult Continue to trend for now Will get ultrasound of liver 05/06/24: White blood cell count 3.1, RBC 2.97, hemoglobin 8.6, platelet count 118 Hematology and Oncology were consulted Will check iron, vitamin B12, folate, vitamin-D, lactate dehydrogenase, HIV, TB CT of chest abdomen pelvis showed a tiny cyst in the right lobe of the liver Ultrasound of the abdomen showing mild gallbladder wall thickening likely secondary to partial contraction (3) Acute hyponatremia: Code(s): E87.1 - Hypo-osmolality and hyponatremia Status: Acute Assessment and Plan: 05/05/24: Sodium 125 Patient was given 1 L of normal saline in the ED and started on normal saline at 125 ml/hr Will recheck sodium around 4:00 p.m. today Patient does have history of drinking beer 10-15 beers a week however this is likely dehydration due to increased diarrhea 05/06/24: Sodium 131 today Continue normal saline at 125 mL/hr Likely dehydration (4) Hypertension: Qualifiers: Hypertension type: primary hypertension Qualified Code(s): I10 - Essential (primary) hypertension Code(s): I10 - Essential (primary) hypertension Status: Chronic Assessment and Plan: 05/05/24: Blood pressure ranging 114/73 to 126/63 Continue lisinopril 05/06/24: No change to current treatment plan (5) Transaminitis: Code(s): R74.01 - Elevation of levels of liver transaminase levels Status: Acute Assessment and Plan: 05/05/24: AST 85, ALT 112 Will get ultrasound of the liver and pancreas CT of abdomen and pelvis 05/06/24: CT of the abdomen and pelvis show tiny cyst in the right lobe of the liver Ultrasound of abdomen showing mild gallbladder wall thickening likely secondary to partial contraction (6) Elevated lipase: Code(s): R74.8 - Abnormal levels of other serum enzymes Status: Acute Assessment and Plan: 05/05/24: Lipase 336 Will continue to watch Will get CT of the abdomen/pelvis Will also get an ultrasound of the liver and pancreas 05/06/24: Will recheck lipase Pancreas was not well visualized on ultrasound (7) Diarrhea: Code(s): R19.7 - Diarrhea, unspecified Status: Acute Assessment and Plan: 05/05/24: Will check C diff Patient recently hospitalized with left knee abscess and had a I and D performed on 04/14/2024 and was covered with cefepime and vancomycin IV and then transition to Bactrim and Augmentin on 04/16/2024. Patient finished antibiotics this past Saturday and then started having loose stools. Monitor electrolytes Continue IV fluids for hydration 05/06/24: C diff was negative Time Spent With Patient Time with patient: 25 - 35 minutes Subjective Date/time seen: 05/06/24 12:51 Interval history: Interval history: This is a 59-year-old male with a significant past medical history of hypertension, alcohol abuse, erectile
[2024-05-06 12:54] LABS: Percent Iron Saturation 9 % (20-50)
[2024-05-06 13:32] LABS: Lipase 290 U/L (23-300)
[2024-05-07 00:53] VITALS: TEMP 38.3
[2024-05-07] MEDS: ACETAMINOPHEN 500 MG TABLET 1000 MG PO (00:53)
[2024-05-07 01:53] VITALS: TEMP 37.7
[2024-05-07 05:51] LABS: Basophils Percent Auto 0.7 % (0.2-1.2); Eosinophils Percent Auto 0.7 % (0-4.4); Hematocrit 26.3 % (42.0-52.0); Hemoglobin 8.8 g/dL (14.0-18.0); Immature Granulocyte Absolute 0.02 K/mm3 (0.00-0.031); Immature Granulocyte Percent A 0.7 % (0-0.5); Immature Platelet Fraction Pct 4.4 % (0.9-11.2); Lymphocytes Absolute Auto 0.62 K/mm3 (0.9-3.2); Lymphocytes Percent Auto 20.5 % (18.3-44.2); Mean Corpuscular HGB Conc 33.5 g/dl (32-36); Mean Corpuscular Hemoglobin 29.1 pg (26-34); Mean Corpuscular Volume 87.1 fl (80-100); Mean Platelet Volume 10.3 fl (7.4-10.4); Monocytes Absolute Auto 0.2 K/mm3 (0.1-0.6); Monocytes Percent Auto 5.9 % (2.6-8.5); Neutrophils Absolute Auto 2.2 K/mm3 (1.3-6.7); Neutrophils Percent Auto 71.5 % (45.5-73.1); Platelet Count Result 118 k/mm3 (150-375); Red Blood Count 3.02 M/mm3 (4.6-6.20); Red Cell Distribution Width 14.9 % (11.5-14.5)
[2024-05-07 06:00] VITALS: BP 136/70; PULSE 80; RESP 18; TEMP 37.2; O2SAT 100
[2024-05-07 06:06] LABS: Alanine Aminotransferase 61 U/L (6-50); Albumin Level 3.1 g/dL (3.5-5.1); Alkaline Phosphatase 70 U/L (38-126); Anion Gap 7 mmol/L (4-12); Aspartate Amino Transferase 43 U/L (17-59); Bilirubin,Total 0.3 mg/dL (0.2-1.3); Blood Urea Nitrogen 6 mg/dL (9-20); Calcium 7.8 mg/dL (8.4-10.2); Carbon Dioxide 23 mmol/L (22-30); Chloride 102 mmol/L (98-107); Estimated CRCL calculation 96 ml/min; Estimated Glomerular Filt Rate > 60; Glucose 106 mg/dL (65-110); Potassium 3.8 mmol/L (3.4-5.0); Sodium 132 mmol/L (137-145)
[2024-05-07] MEDS: CYANOCOBALAMIN 1,000 MCG TABLET 1000 MCG PO (08:29)
[2024-05-07] MEDS: FERROUS SULFATE 325 MG TABLET DR PO (08:29)
[2024-05-07] MEDS: lisinopriL 20 MG TABLET PO (08:29)
[2024-05-07] MEDS: AZITHROMYCIN 250 MG TABLET 500 MG PO (08:29)
--- NOTE | 2024-05-07 09:53 | PDONCCN ---
HPI - Date of Consult Date/Time: 05/07/24 17:33 <Sudhakar Rueda - 05/07/24 17:35> 05/07/24 09:53 <Deborah Nam - 05/07/24 10:09> Requesting Physician: Todd Zafar MD <Sudhakar Rueda - 05/07/24 17:35> Todd Zafar MD <Deborah Nam - 05/07/24 10:09> Primary Care Provider: Royal Mariscal MD <Sudhakar Rueda - 05/07/24 17:35> Royal Mariscal MD <Deborah Nam - 05/07/24 10:09> - Consult Narrative Reason for consult: Pancytopenia <Deborah Nam - 05/07/24 10:09> Narrative: Joey Edwards Jr. is a 59 year old male <Sudhakar Rueda - 05/07/24 17:35> Joey Edwards Jr. is a 59 year old male with a past medical history of HTN, alcohol abuse, who was admitted for worsening diarrhea and weakness. He was admitted on 04/13 for an abscess on his knee and is s/p I&D w/ IV abx and was discharged on PO abx. He just stopped those abx on 05/03. He reports increasing diarrhea, fatigue, and weakness since he was discharged home. He does report shortness of breath without exertion since being in the hospital and a productive cough. We are consulted for his pancytopenia. He denies any frequent infections, blood loss, or easy bruising or bleeding. He has never had a colonoscopy but had a negative Cologuard. He does report alcohol use soley on the weekends but per chart review, he does have an etoh abuse history. CT A/P shows no hepatosplenomegaly. Labs today are notable for WBC 3.0, Hgb 8.8, Hct 26 Plt 118,000, Iron 18 % sat 9 B12 392. <Deborah Nam - 05/07/24 10:09> Review of Systems - Review of Systems All systems reviewed & are unremarkable except as noted in HPI and bel <Deborah Nam - 05/07/24 10:09> - Neurologic Reports system reviewed and no additional complaints, except as documented <Deborah Nam - 05/07/24 10:09> [facility] Medical History: Medical History (Last Reviewed 05/05/24 @ 14:42 by Dariela Nolan APRN) Erectile dysfunction Essential hypertension Prepatellar bursitis, left knee Septic infrapatellar bursitis of left knee <Sudhakar Rueda - 05/07/24 17:35> Medical History (Last Reviewed 05/05/24 @ 14:42 by Dariela Nolan APRN) Erectile dysfunction Essential hypertension Prepatellar bursitis, left knee Septic infrapatellar bursitis of left knee <Deborah Nam - 05/07/24 10:09> Surgical History: Surgical History (Last Reviewed 05/05/24 @ 14:42 by Dariela Nolan APRN) History of carpal tunnel surgery of right wrist 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 Left thumb With reattachment Status post open reduction with internal fixation of fracture Right forearm <Sudhakar Rueda - 05/07/24 17:35> Surgical History (Last Reviewed 05/05/24 @ 14:42 by Dariela Nolan APRN) History of carpal tunnel surgery of right wrist 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 Left thumb With reattachment Status post open reduction with internal fixation of fracture Right forearm <Deborah Nam - 05/07/24 10:09> Family History: Family History (Last Reviewed 05/05/24 @ 14:42 by Dariela Nolan APRN) Father Hypertension Heart problem <Sudhakar Rueda - 05/07/24 17:35> Family History (Last Reviewed 05/05/24 @ 14:42 by Dariela Nolan APRN) Father Hypertension Heart problem <Deborah Nam - 05/07/24 10:09> - Social History Social History: Social History (Last Reviewed 05/05/24 @ 14:42 by Dariela Nolan APRN) Gender Identity: Gender identity (if verbalized by the patient): Male Sexual Orientation: Sexual Orientation (if Verbalized by the Patient): Straight or Heterosexual Alcohol Use: Alcohol intake: current Drinks per week: 15 Substance Use: Substance use: never Substance use type: does not use Others: Spiritual care concerns: No Living Arrangements: Living arrangements
[2024-05-07] MEDS: IRON SUCROSE COMPLEX 400 MG, IRON SUCROSE COMPLEX 100 MG in SODIUM CHLORIDE 0.9% IV 250 ML 78.57 MG IVPB (10:24)
[2024-05-07] MEDS: ENOXAPARIN 40 MG/0.4 ML SYRINGE SUB-Q (10:25)
--- NOTE | 2024-05-07 11:54 | PM.DS ---
DS: Admitting Diagnosis Discharge Date 05/07/24 Admitting Diagnosis Pneumonia Pancytopenia Acute hyponatremia Hypertension Transaminitis Elevated lipase Diarrhea DS: Discharge Diagnosis Discharge Diagnosis (1) Pneumonia: Code(s): J18.9 - Pneumonia, unspecified organism Status: Acute (2) Pancytopenia: Code(s): D61.818 - Other pancytopenia Status: Acute (3) Acute hyponatremia: Code(s): E87.1 - Hypo-osmolality and hyponatremia Status: Acute (4) Hypertension: Qualifiers: Hypertension type: primary hypertension Qualified Code(s): I10 - Essential (primary) hypertension Code(s): I10 - Essential (primary) hypertension Status: Chronic (5) Transaminitis: Code(s): R74.01 - Elevation of levels of liver transaminase levels Status: Acute (6) Elevated lipase: Code(s): R74.8 - Abnormal levels of other serum enzymes Status: Acute (7) Diarrhea: Code(s): R19.7 - Diarrhea, unspecified Status: Acute DS: Summary Hospital Course Reason for hospitalization: Pneumonia Pancytopenia Acute hyponatremia Hypertension Transaminitis Elevated lipase Diarrhea Hospital Course: This is a 59-year-old male with a significant past medical history of hypertension, alcohol abuse, erectile dysfunction presents with diarrhea and weakness. Patient reports the following history. Patient was recently admitted on 04/13/2024 due to sepsis and left knee swelling workup at that time showed an abscess of the left knee and orthopedic surgery was consulted at that time. Patient went to the OR on 04/14/2024 and had a left knee I&D with irrigation and debridement. He was on cefepime and vancomycin while in the hospital and then discharged on Augmentin and Bactrim on 04/16/2024. He did see Ortho at some point and had his sutures removed. He was on oral antibiotics until this past Saturday and then started in with loose stools and weakness causing him to present back to the hospital for further workup. Patient denies any fever, chills, nausea, vomiting, abdominal pain, chest pain, shortness a breath. Patient endorses diarrhea with increased episodes of diarrhea last night. Workup in hospital included head CT which was negative. Chest x-ray which shows right basal pneumonia. Initial labs show a white blood cell count of 2.7, RBC 3.71, hemoglobin 10.5, platelet count 144, sodium 125, chloride 92, bicarb 19, anion gap 14, AST 85, ALT 112, C reactive protein 4.7, lipase 336. UA was obtained and was negative. Respiratory panel was negative for influenza a and B, RSV, COVID. Blood cultures were obtained and are pending. EKG showing sinus rhythm with right bundle-branch block, with a rate of 87, QTC 399. Patient was started on Rocephin and azithromycin for hospital-acquired pneumonia and was given 1 L of normal saline while in the ED. patient was changed to Augmentin and azithromycin. Blood cultures were negative to date on preliminary read. Labs still significant for pancytopenia. Oncology/hematology started workup for pancytopenia and started patient on vitamin B12. He will need to follow up with Oncology Hematology on an outpatient basis. He will also need to finish all of his antibiotic for hospitalized acquired pneumonia and then follow up with his primary care physician. He is stable for discharge at this time Final diagnosis: Hospital-acquired pneumonia, hyponatremia, pancytopenia, transaminitis Status at Discharge Cognitive/behavioral status at discharge: Alert oriented x4 Functional status at discharge: independent ambulation Overall status at discharge: patient is progressing back to baseline Time Spent with Patient Time attestation: Total time spent providing and/or coordinating discharge services: Time spent: Greater than 30 minutes Exam Narrative: General: In no acute distress, well nourished Cardiac: Normal S1 and S2. RRR, No murmur, gallops or frictio
== END 2024-05-07 14:50 | disposition home or self-care (01) | DRG 194 ==
LOC: ANHED 10:12 → ANH3MEDSUR 11:32 → ANH3MED 11:35
PROVIDERS: Admitting Provider Internal Medicine; Emergency Provider Emergency Medicine; PCP Family Medicine; Visit Provider Nurse Practitioner Acute Care
DX: J18.9 Pneumonia, unspecified organism (principal); D61.818 Other pancytopenia; E87.1 Hypo-osmolality and hyponatremia; R19.7 Diarrhea, unspecified; E86.0 Dehydration; I10 Essential (primary) hypertension; Z20.822 Contact with and (suspected) exposure to COVID-19
CPT/HCPCS: 36415; 70450; 71046; 71260; 74177; 76536; 76705; 80053; 81003; 82306; 82607; 82746; 83540; 83550; 83605; 83615; 83690; 84295; 85025; 85055; 85610; 85730; 86140; 86703; 87040; 87493; 87637; 93005; 96365; 96366; 99285; A9270; G0378; G0379; G0432; J0456; J0696; J1650; J1756; J7030; J7050; Q9967

== ENCOUNTER 2024-05-21 09:18 | Outpatient (CLI) | payer BC, SELFPAY ==
[2024-05-21 09:39] LABS: Basophils Absolute Auto 0.1 K/mm3 (0.0-0.1); Basophils Percent Auto 1.8 % (0.2-1.2); Eosinophils Absolute Auto 0.1 K/mm3 (0-0.3); Eosinophils Percent Auto 2.6 % (0-4.4); Hematocrit 39.1 % (42.0-52.0); Hemoglobin 12.5 g/dL (14.0-18.0); Immature Granulocyte Absolute 0.06 K/mm3 (0.00-0.031); Immature Granulocyte Percent A 1.2 % (0-0.5); Lymphocytes Absolute Auto 1.42 K/mm3 (0.9-3.2); Mean Corpuscular Hemoglobin 28.4 pg (26-34); Mean Corpuscular Volume 88.9 fl (80-100); Mean Platelet Volume 9.6 fl (7.4-10.4); Monocytes Absolute Auto 0.5 K/mm3 (0.1-0.6); Monocytes Percent Auto 9.4 % (2.6-8.5); Neutrophils Absolute Auto 2.9 K/mm3 (1.3-6.7); Platelet Count Result 383 k/mm3 (150-375); Red Cell Distribution Width 14.8 % (11.5-14.5); White Blood Count 5.1 K/mm3 (4.5-10.0)
[2024-05-21 13:34] LABS: Iron 81 ug/dL (49-181)
[2024-05-21 13:41] LABS: Anion Gap 9 mmol/L (4-12); Blood Urea Nitrogen 10 mg/dL (9-20); Carbon Dioxide 28 mmol/L (22-30); Chloride 99 mmol/L (98-107); Potassium 4.4 mmol/L (3.4-5.0); Sodium 136 mmol/L (137-145)
[2024-05-21 13:42] LABS: Alanine Aminotransferase 100 U/L (6-50); Alkaline Phosphatase 103 U/L (38-126); Aspartate Amino Transferase 54 U/L (17-59); Bilirubin,Total 0.3 mg/dL (0.2-1.3); Calcium 9.3 mg/dL (8.4-10.2); Estimated Glomerular Filt Rate > 60; Glucose 101 mg/dL (65-110)
[2024-05-21 14:23] LABS: Percent Iron Saturation 32 % (20-50)
[2024-05-21 15:19] LABS: Folic Acid 6.8 ng/mL (2.76->20)
[2024-05-26 09:23] LABS: Methylmalonic Acid 99 nmol/L (55-335)
[2024-05-28 14:49] LABS: Soluble Transferrin Receptor 2.97 mg/L (0.76-1.76)
== END 2024-05-21 09:19 | disposition home or self-care (01) ==
LOC: ANHLAB 09:21
PROVIDERS: PCP Family Medicine; Visit Provider Internal Medicine Hematology & Oncology
DX: D64.9 Anemia, unspecified (principal)
CPT/HCPCS: 36415; 80053; 82607; 82728; 82746; 83540; 83550; 83921; 84238; 85025

== ENCOUNTER 2024-08-11 12:24 | Outpatient (CLI) | payer BC, SELFPAY ==
--- NOTE | ~2024-08-11 | XR_ITS ---
Left Knee Technique: AP, lateral, and sunrise views were obtained. Clinical History: Chronic pain Findings: No fracture or dislocation is seen. There is medial compartment narrowing. There is moderat e tricompartmental degenerative spurring. Small joint effusion is seen. Impression: Tricompartmental degenerative change, as above. Small joint effusion. Reviewed, dictated and finalized at location . [employer]CH[employer]ICIAN Impression: Tricompartmental degenerative change, as above. Small joint effusion.
== END 2024-08-11 12:25 | disposition home or self-care (01) ==
PROVIDERS: PCP Family Medicine; Visit Provider Family Medicine
DX: M17.12 Unilateral primary osteoarthritis, left knee (principal); M25.462 Effusion, left knee
CPT/HCPCS: 73562

== ENCOUNTER 2024-10-12 14:59 | Outpatient (CLI) | payer BC, SELFPAY ==
[2024-10-12 15:07] LABS: Basophils Percent Auto 0.7 % (0.2-1.2); Eosinophils Absolute Auto 0.1 K/mm3 (0-0.3); Eosinophils Percent Auto 1.5 % (0-4.4); Hematocrit 39.7 % (42.0-52.0); Hemoglobin 13.5 g/dL (14.0-18.0); Immature Granulocyte Absolute 0.01 K/mm3 (0.00-0.031); Immature Granulocyte Percent A 0.2 % (0-0.5); Lymphocytes Absolute Auto 1.23 K/mm3 (0.9-3.2); Lymphocytes Percent Auto 22.7 % (18.3-44.2); Mean Corpuscular Hemoglobin 30.2 pg (26-34); Mean Corpuscular Volume 88.8 fl (80-100); Mean Platelet Volume 10.2 fl (7.4-10.4); Monocytes Absolute Auto 0.4 K/mm3 (0.1-0.6); Monocytes Percent Auto 7.7 % (2.6-8.5); Neutrophils Absolute Auto 3.6 K/mm3 (1.3-6.7); Neutrophils Percent Auto 67.2 % (45.5-73.1); Platelet Count Result 203 k/mm3 (150-375); Red Blood Count 4.47 M/mm3 (4.6-6.20); Red Cell Distribution Width 13.7 % (11.5-14.5); White Blood Count 5.4 K/mm3 (4.5-10.0)
[2024-10-12 16:40] LABS: Iron 92 ug/dL (49-181)
[2024-10-12 16:50] LABS: Percent Iron Saturation 34 % (20-50)
== END 2024-10-12 15:00 | disposition home or self-care (01) ==
LOC: ANHLAB 14:59
PROVIDERS: PCP Family Medicine; Visit Provider Internal Medicine Hematology & Oncology
DX: D64.9 Anemia, unspecified (principal)
CPT/HCPCS: 36415; 82728; 83540; 83550; 85025